=== PATIENT | female | born 1970 | race American Indian/Alaskan Native ===

== ENCOUNTER 2018-06-27 12:41 | Emergency (ER) | payer OTHER, SELFPAY ==
--- NOTE | 2018-06-27 12:53 | Emergency Department Report ---
Blank Doc - Documentation Documentation: This is a 47-year-old female that presents with right pelvic pain. Stated has history of ovarian cysts and fibroids. This initial assessment/diagnostic orders/clinical plan/treatment(s) is/are subject to change based on patient's health status, clinical progression and re-assessment by fellow clinical providers in the ED. Further treatment and workup at subsequent clinical providers discretion. Patient/guardians urged not to elope from the ED as their condition may be serious if not clinically assessed and managed. Initial orders include: 1- Patient sent to [facility] for further evaluation and treatment 2- labs 3- UA
[2018-06-27 13:25] LABS: Hematocrit 24.4 % (30.3-42.9); Hemoglobin 7.4 gm/dl (10.1-14.3); Mean Corpuscular HGB Conc 30 % (30-34); Mean Corpuscular Volume 58 fl (79-97); Red Blood Count 4.18 M/mm3 (3.65-5.03)
[2018-06-27 13:26] LABS: Platelet Count 321 K/mm3 (140-440); Red Cell Distribution Width 26.7 % (13.2-15.2)
[2018-06-27 13:59] LABS: Basophils % (Manual) 0 % (0.0-1.8); Total Cells Counted 100
[2018-06-27 14:00] LABS: Anisocytosis 3+; Hypochromasia 2+; Platelet Estimate Consistent w Auto; Poikilocytosis 1+
[2018-06-27 14:01] LABS: Ovalocytes Few; Tear Drop Cells Few
[2018-06-27 14:10] LABS: Alanine Aminotransferase 15 units/L (7-56); Albumin 3.7 g/dL (3.9-5); BUN/Creatinine Ratio 14; Blood Urea Nitrogen 10 mg/dL (7-17); Calcium 8.7 mg/dL (8.4-10.2); Hemolysis Index 0
[2018-06-27 14:12] LABS: Bilirubin,Direct < 0.2 mg/dL (0-0.2)
[2018-06-27 14:18] LABS: Bacteria,Urine 1+ /HPF (Negative); Bilirubin,Urine NEG (Negative); Blood,Urine NEG (Negative); Color,Urine Yellow (Yellow); Hyaline Casts,Urine 1 /LPF; Mucus,Urine FEW /HPF; Protein,Urine <15 mg/dL mg/dL (Negative); Urobilinogen,Urine < 2.0 mg/dL (<2.0)
--- NOTE | 2018-06-27 14:39 | Emergency Department Report ---
ED Abdominal Pain HPI - General Chief Complaint: Abdominal Pain Stated Complaint: ABD PAIN Time Seen by Provider: 06/27/18 12:52 Source: patient Mode of arrival: Ambulatory Limitations: No Limitations - History of Present Illness Initial Comments: Pt is a 47 yo female who presents to the ED with c/o RLQ abd pain that began yesterday. She states she had this similar pain in Feb 2018 and was diagnosed with fibroids. She states about 20 years before this she was diagnosed with ovarian cyst. She has associated nausea and dry heaving. She denies any diarrhea or fever. She states she has been having normal BMs. The patient states she has been taking naproxen for the pain without much relief. The patient states her PROGRAM ADMINISTRATOR recommended hysterectomy due to fibroids/cysts but she did not want procedure at that time. The patient states she has heavy menstrual cycles. She has a hx of gastric bypass. She states her LMP was last week and it lasted the entire week. Severity scale (0 -10): 8 - Related Data Previous Rx's Medication Instructions Recorded Last Taken Type Sennosides Tab [Senokot] 8.6 mg PO Q12H #30 tablet 02/25/18 Unknown Rx amLODIPine [Norvasc] 10 mg PO QDAY #30 tablet 02/25/18 Unknown Rx Acetaminophen/Codeine [Tylenol 1 tab PO Q6H PRN #14 tab 06/27/18 Unknown Rx /Codeine # 3 tab] Dicyclomine [Bentyl] 10 mg PO DAILY PRN #14 capsule 06/27/18 Unknown Rx Docusate Sodium [Colace] 100 mg PO BID #20 capsule 06/27/18 Unknown Rx Ibuprofen 600 mg PO Q6HR PRN #20 tablet 06/27/18 Unknown Rx Ondansetron [Zofran Odt] 4 mg PO Q8HR PRN #14 tab.rapdis 06/27/18 Unknown Rx Polyethylene Glycol 3350 [Miralax] 119 gm PO DAILY #7 powder 06/27/18 Unknown Rx metFORMIN [Glucophage] 500 mg PO BID 30 Days #60 tablet 06/27/18 Unknown Rx Allergies Allergy/AdvReac Type Severity Reaction Status Date / Time No Known Allergies Allergy Unverified 02/23/18 13:48 ED Review of Systems ROS: Stated complaint: ABD PAIN Other details as noted in HPI Comment: All other systems reviewed and negative ED Past Medical Hx - Past Medical History Previous Medical History?: Yes Hx Congestive Heart Failure: No Hx Diabetes: No Hx Asthma: No Hx COPD: No Additional medical history: Ovarian cyst, fibroids, gallstones - Surgical History Past Surgical History?: Yes Additional Surgical History: gastric bypass - Social History Smoking Status: Current Every Day Smoker Substance Use Type: None - Medications Home Medications: Home Medications Medication Instructions Recorded Confirmed Last Taken Type Sennosides Tab [Senokot] 8.6 mg PO Q12H #30 tablet 02/25/18 Unknown Rx amLODIPine [Norvasc] 10 mg PO QDAY #30 tablet 02/25/18 Unknown Rx Acetaminophen/Codeine [Tylenol 1 tab PO Q6H PRN #14 tab 06/27/18 Unknown Rx /Codeine # 3 tab] Dicyclomine [Bentyl] 10 mg PO DAILY PRN #14 capsule 06/27/18 Unknown Rx Docusate Sodium [Colace] 100 mg PO BID #20 capsule 06/27/18 Unknown Rx Ibuprofen 600 mg PO Q6HR PRN #20 tablet 06/27/18 Unknown Rx Ondansetron [Zofran Odt] 4 mg PO Q8HR PRN #14 tab.rapdis 06/27/18 Unknown Rx Polyethylene Glycol 3350 [Miralax] 119 gm PO DAILY #7 powder 06/27/18 Unknown Rx metFORMIN [Glucophage] 500 mg PO BID 30 Days #60 tablet 06/27/18 Unknown Rx ED Physical Exam - General Limitations: No Limitations General appearance: alert, in no apparent distress, other - Head Head exam: Present: atraumatic, normocephalic - Eye Eye exam: Present: normal appearance - ENT ENT exam: Present: mucous membranes moist - Respiratory Respiratory exam: Present: normal lung sounds bilaterally. Absent: respiratory distress, wheezes, rales, rhonchi, stridor, chest wall tenderness, accessory muscle use, decreased breath sounds, prolonged expiratory - Cardiovascular Cardiovascular Exam: Present: regular rate, normal rhythm, normal heart sounds. Absent: systolic murmur, diastolic murmur, rubs, gallop - GI/Abdominal GI/Abdominal exam: Present: soft, tenderness (RLQ and tenderness in the right lower quadrant when palpating the LLQ), guarding (voluntary ), normal bowel sounds. Absent: distended, rebound, rigid - Back Exam Back exam: Absent: CVA tenderness (R), CVA tenderness (L) - Neurological Exam Neurological exam: Present: alert, oriented X3 - Psychiatric Psychiatric exam: Present: normal affect, normal mood - Skin Skin exam: Present: warm, dry, intact ED Course Vital Signs 06/27/18 06/27/18 06/27/18 12:52 15:08 15:18 Temperature 99.1 F 98.5 F Pulse Rate 89 75 Respiratory 16 18 18 Rate Blood Pressure 177/57 Blood Pressure 172/76 [Left] O2 Sat by Pulse 100 100 Oximetry ED Medical Decision Making - Lab Data Result diagrams: 06/27/18 12:58 06/27/18 12:58 Lab Results 06/27/18 06/27/18 06/27/18 Range/Units 12:50 12:58 12:58 WBC 9.5 (4.5-11.0) K/mm3 RBC 4.18 (3.65-5.03) M/mm3 Hgb 7.4 L (10.1-14.3) gm/dl Hct 24.4 L (30.3-42.9) % MCV 58 L (79-97) fl MCH 18 L (28-32) pg MCHC 30 (30-34) % RDW 26.7 H (13.2-15.2) % Plt Count 321 (140-440) K/mm3 Add Manual Diff Complete Total Counted 100 Seg Neuts % (Manual) 77.0 H (40.0-70.0) % Band Neutrophils % 0 % Lymphocytes % (Manual) 20.0 (13.4-35.0) % Reactive Lymphs % (Man) 0 % Monocytes % (Manual) 2.0 (0.0-7.3) % Eosinophils % (Manual) 1.0 (0.0-4.3) % Basophils % (Manual) 0 (0.0-1.8) % Metamyelocytes % 0 % Myelocytes % 0 % Promyelocytes % 0 % Blast Cells % 0 % Nucleated RBC % Not Reportable Seg Neutrophils # Man 7.3 (1.8-7.7) K/mm3 Band Neutrophils # 0.0 K/mm3 Lymphocytes # (Manual) 1.9 (1.2-5.4) K/mm3 Abs React Lymphs (Man) 0.0 K/mm3 Monocytes # (Manual) 0.2 (0.0-0.8) K/mm3 Eosinophils # (Manual) 0.1 (0.0-0.4) K/mm3 Basophils # (Manual) 0.0 (0.0-0.1) K/mm3 Metamyelocytes # 0.0 K/mm3 Myelocytes # 0.0 K/mm3 Promyelocytes # 0.0 K/mm3 Blast Cells # 0.0 K/mm3 WBC Morphology Not Reportable Hypersegmented Neuts Not Reportable Hyposegmented Neuts Not Reportable Hypogranular Neuts Not Reportable Smudge Cells Not Reportable Toxic Granulation Not Reportable Toxic Vacuolation Not Reportable Dohle Bodies Not Reportable Pelger-Huet Anomaly Not Reportable Pippa Rods Not Reportable Platelet Estimate Consistent w auto Clumped Platelets Not Reportable Plt Clumps, EDTA Not Reportable Large Platelets Not Reportable Giant Platelets Not Reportable Platelet Satelliting Not Reportable Plt Morphology Comment Not Reportable RBC Morphology Not Reportable Dimorphic RBCs Not Reportable Polychromasia Not Reportable Hypochromasia 2+ Poikilocytosis 1+ Anisocytosis 3+ Microcytosis 2+ Macrocytosis Not Reportable Spherocytes Not Reportable Pappenheimer Bodies Not Reportable Sickle Cells Not Reportable Target Cells Not Reportable Tear Drop Cells Few Ovalocytes Few Helmet Cells Not Reportable [place] Bodies Not Reportable [place] Rings Not Reportable Clay Cells Not Reportable Bite Cells Not Reportable Crenated Cell Not Reportable Elliptocytes Few Acanthocytes (Spur) Not Reportable Rouleaux Not Reportable Hemoglobin C Crystals Not Reportable Schistocytes Not Reportable Malaria parasites Not Reportable Yash Bodies Not Reportable Hem Pathologist Commnt No Sodium 138 (137-145) mmol/L Potassium 4.1 (3.6-5.0) mmol/L Chloride 103.1 (98-107) mmol/L Carbon Dioxide 23 (22-30) mmol/L Anion Gap 16 mmol/L BUN 10 (7-17) mg/dL Creatinine 0.7 (0.7-1.2) mg/dL Estimated GFR > 60 ml/min BUN/Creatinine Ratio 14 % Glucose 246 H (65-100) mg/dL Calcium 8.7 (8.4-10.2) mg/dL Total Bilirubin 0.30 (0.1-1.2) mg/dL Direct Bilirubin < 0.2 (0-0.2) mg/dL Indirect Bilirubin 0.1 mg/dL AST 21 (5-40) units/L ALT 15 (7-56) units/L Alkaline Phosphatase 78 (35-129) units/L Total Protein 7.3 (6.3-8.2) g/dL Albumin 3.7 L (3.9-5) g/dL Albumin/Globulin Ratio 1.0 % Vitamin B12 475.3 (211-911) pg/mL HCG, Qual (Negative) Urine Color (Yellow) Urine Turbidity (Clear) Urine pH (5.0-7.0) Ur Specific Lohn (1.003-1.030) Urine Protein (Negative) mg/dL Urine Glucose (UA) (Negative) mg/dL Urine Ketones (Negative) mg/dL Urine Blood (Negative) Urine Nitrite (Negative) Urine Bilirubin (Negative) Urine Urobilinogen (<2.0) mg/dL Ur Leukocyte Esterase (Negative) Urine WBC (Auto) (0.0-6.0) /HPF Urine RBC (Auto) (0.0-6.0) /HPF U Epithel Cells (Auto) (0-13.0) /HPF Urine Bacteria (Auto) (Negative) /HPF Hyaline Casts /LPF Urine Mucus /HPF Blood Type Antibody Screen 06/27/18 06/27/18 06/27/18 Range/Units 12:58 14:05 Unknown WBC (4.5-11.0) K/mm3 RBC (3.65-5.03) M/mm3 Hgb (10.1-14.3) gm/dl Hct (30.3-42.9) % MCV (79-97) fl MCH (28-32) pg MCHC (30-34) % RDW (13.2-15.2) % Plt Count (140-440) K/mm3 Add Manual Diff Total Counted Seg Neuts % (Manual) (40.0-70.0) % Band Neutrophils % % Lymphocytes % (Manual) (13.4-35.0) % Reactive Lymphs % (Man) % Monocytes % (Manual) (0.0-7.3) % Eosinophils % (Manual) (0.0-4.3) % Basophils % (Manual) (0.0-1.8) % Metamyelocytes % % Myelocytes % % Promyelocytes % % Blast Cells % % Nucleated RBC % Seg Neutrophils # Man (1.8-7.7) K/mm3 Band Neutrophils # K/mm3 Lymphocytes # (Manual) (1.2-5.4) K/mm3 Abs React Lymphs (Man) K/mm3 Monocytes # (Manual) (0.0-0.8) K/mm3 Eosinophils # (Manual) (0.0-0.4) K/mm3 Basophils # (Manual) (0.0-0.1) K/mm3 Metamyelocytes # K/mm3 Myelocytes # K/mm3 Promyelocytes # K/mm3 Blast Cells # K/mm3 WBC Morphology Hypersegmented Neuts Hyposegmented Neuts Hypogranular Neuts Smudge Cells Toxic Granulation Toxic Vacuolation Dohle Bodies Pelger-Huet Anomaly Pippa Rods Platelet Estimate Clumped Platelets Plt Clumps, EDTA Large Platelets Giant Platelets Platelet Satelliting Plt Morphology Comment RBC Morphology Dimorphic RBCs Polychromasia Hypochromasia Poikilocytosis Anisocytosis Microcytosis Macrocytosis Spherocytes Pappenheimer Bodies Sickle Cells Target Cells Tear Drop Cells Ovalocytes Helmet Cells Kowalski-[place] Bodies [place]re[place] Rings Antelmo Cells Bite Cells Crenated Cell Elliptocytes Acanthocytes (Spur) Rouleaux Hemoglobin C Crystals Schistocytes Malaria parasites Yash Bodies Hem Pathologist Commnt Sodium (137-145) mmol/L Potassium (3.6-5.0) mmol/L Chloride (98-107) mmol/L Carbon Dioxide (22-30) mmol/L Anion Gap mmol/L BUN (7-17) mg/dL Creatinine (0.7-1.2) mg/dL Estimated GFR ml/min BUN/Creatinine Ratio % Glucose (65-100) mg/dL Calcium (8.4-10.2) mg/dL Total Bilirubin (0.1-1.2) mg/dL Direct Bilirubin (0-0.2) mg/dL Indirect Bilirubin mg/dL AST (5-40) units/L ALT (7-56) units/L Alkaline Phosphatase (35-129) units/L Total Protein (6.3-8.2) g/dL Albumin (3.9-5) g/dL Albumin/Globulin Ratio % Vitamin B12 (211-911) pg/mL HCG, Qual Negative (Negative) Urine Color Yellow (Yellow) Urine Turbidity Clear (Clear) Urine pH 5.0 (5.0-7.0) Ur Specific Lohn 1.009 (1.003-1.030) Urine Protein <15 mg/dl (Negative) mg/dL Urine Glucose (UA) Neg (Negative) mg/dL Urine Ketones Neg (Negative) mg/dL Urine Blood Neg (Negative) Urine Nitrite Neg (Negative) Urine Bilirubin Neg (Negative) Urine Urobilinogen < 2.0 (<2.0) mg/dL Ur Leukocyte Esterase Neg (Negative) Urine WBC (Auto) 3.0 (0.0-6.0) /HPF Urine RBC (Auto) 2.0 (0.0-6.0) /HPF U Epithel Cells (Auto) 5.0 (0-13.0) /HPF Urine Bacteria (Auto) 1+ (Negative) /HPF Hyaline Casts 1 /LPF Urine Mucus Few /HPF Blood Type O POSITIVE Antibody Screen Negative Vital Signs 06/27/18 06/27/18 06/27/18 12:52 15:08 15:18 Temperature 99.1 F 98.5 F Pulse Rate 89 75 Respiratory 16 18 18 Rate Blood Pressure 177/57 Blood Pressure 172/76 [Left] O2 Sat by Pulse 100 100 Oximetry - Radiology Data Radiology results: report reviewed PROCEDURE: CT ABDOMEN PELVIS W CON TECHNIQUE: CT abdomen and pelvis with intravenous contrast HISTORY: RLQ pain x 1 day, hx of ovarian cyst COMPARISONS: Comparison is dated February 23, 2018 FINDINGS: No focal abnormality identified in the visualized lung bases. No focal abnormalities seen within the liver parenchyma. Multiple lucent and dense foci within the gallbladder consistent with cholelithiasis. No evidence for ductal dilatation within the liver or common duct. Spleen is normal in size and attenuation Adrenal glands are unremarkable. Kidneys demonstrate symmetric contrast enhancement Along the superior margin of the pancreas adjacent to the stomach there is a thin-walled cystic focus measuring 4.5 x 3.9 x 3.5 cm. This is unchanged from prior exam. There is dilatation of the duct distal to the cyst 0.4 cm. No evidence for dilatation of the pancreatic duct at the body or head of the pancreas. No acute peripancreatic inflammatory changes are observed. There is evidence for prior gastric surgery the colon is moderately distended there is large amount of fecal material throughout the colon. Within the left lower quadrant there is a distended bowel loop containing air and fecal appearing material with evidence for prior surgery and suture material present. Appears to be a focal small bowel segment at site of prior resection. There is some sacralization of small bowel contents throughout most suggestive of stasis. Within the left upper quadrant there are more significantly distended small nena l loops measuring up to 4.2 cm There is are multiple cystic foci present within the pelvis this appears similar to the prior exam these measure up to 5.4 cm in transverse diameter Abdominal aorta is normal in caliber No free air or free fluid identified. Urinary bladder is unremarkable. IMPRESSION: Findings are suggestive of prior gastric and small bowel surgery. Please correlate with surgical history Distended proximal to mid small bowel loops with equalization of material within additional small bowel loops and possible transition point. Findings concerning for obstruction or possible pseudoobstruction due to ileus. Cyst seen which appears to be arising from the tail of the pancreas with ductal dilatation of the distal pancreas. Differential considerations could include a serous cystadenoma or other pancreatic cyst versus pseudocyst. Continued follow-up recommended additional 6 month initial follow-up suggested versus surgical consultation.. Increased amount of fecal material throughout the colon may reflect constipation Multiple cystic foci in the lower pelvis similar to the prior exam likely ovarian in origin and persistent consider MEASUREMENT SUPERINTENDENT evaluation This document is electronically signed by Sky Montanez MD. Findings were discussed with CANDI Avila at 5:18 PM EST on June 27, 2018, June 27 2018 05:21:43 PM ET Transcribed By: ORQUIDEA Dictated By: ARLEEN MONTANEZ MD Electronically Authenticated By: ARLEEN MONTANEZ MD Signed Date/Time: 06/27/18 1723 - Medical Decision Making Pt is a 47 yo female who presents to the ED with c/o RLQ abd pain that began yesterday. She states she had this similar pain in Feb 2018 and was diagnosed with fibroids. She states about 20 years before this she was diagnosed with ovarian cyst. She has associated nausea and dry heaving. She denies any diarrhea or fever. She states she has been having normal BMs. The patient states she has been taking naproxen for the pain without much relief. The patient states her PROGRAM ADMINISTRATOR recommended hysterectomy due to fibroids/cysts but she did not want procedure at that time. The patient states she has heavy menstrual cycles. She has a hx of gastric bypass. She states her LMP was last week and it lasted the entire week. Labs reveal stable anemia with hgb at 7.4. Pt has a hx of anemia due to heavy cycles advised pt to please take her iron. Labs also reveal elevated blood glucose of 246, most likely representing new diagnosis of d iabetes, pt started on metformin 500 mg BID and advised to please follow up with a primary care doctor in the next 2-3 days, discussed side effects with patient. Pt blood pressure is elevated, advised pt to please see PCP for further evaluation and management. Pt CT abd pelvis shows Distended proximal to mid small bowel loops with equalization of material within additional small bowel loops and possible transition point. Findings concerning for obstruction or possible pseudoobstruction due to ileus. Cyst seen which appears to be arising from the tail of the pancreas with ductal dilatation of the distal pancreas. Differential considerations could include a serous cystadenoma or other pancreatic cyst versus pseudocyst. Continued follow-up recommended additional 6 month initial follow-up suggested versus surgical consultation.. Increased amount of fecal material throughout the colon may reflect constipation. Multiple cystic foci in the lower pelvis similar to the prior exam likely ovarian in origin and persistent consider MEASUREMENT SUPERINTENDENT evaluation. Pt is tolerating PO intake while in the ED without difficulty. pt has eaten chips and drank water with no difficulty. Pt has normal BMs and has normal bowel sounds. Unlikely to be an obstruction, most likely representing an ileus. Pt given general surgery referral to follow up in the next 2-3 days for pancreatic cyst, gallstones, and prior gastric surgery. pt also given GI doctor to follow up with in the next 2-3 days. Pt sees PROGRAM ADMINISTRATOR at [facility] advised to follow back up in the next 2-3 days to discuss recurring ovarian cysts. Discussed in detail with patient to return to the emergency department for emesis, abd pain, unable to have BMs or pass gas, or any new or worsening symptoms. Pt verbalized understanding. Case discussed with Dr. Mcdonald, who agrees with tx and plan for follow up. - Differential Diagnosis Cyst, Fibroids, Appendicitis, SBO Critical care attestation.: If time is entered above; I have spent that time in minutes in the direct care of this critically ill patient, excluding procedure time. ED Disposition Clinical Impression: Pancreatic cyst, Ileus, unspecified, Elevated blood pressure reading Abdominal pain Qualifiers: Abdominal location: right lower quadrant Qualified Code(s): R10.31 - Right lower quadrant pain Cholelithiasis Qualifiers: Cholelithiasis location: gallbladder Cholecystitis presence: without cholecystitis Biliary obstruction: without biliary obstruction Qualified Code(s): K80.20 - Calculus of gallbladder without cholecystitis without obstruction Ovarian cyst Qualifiers: Laterality: bilateral Qualified Code(s): N83.201 - Unspecified ovarian cyst, right side; N83.202 - Unspecified ovarian cyst, left side Diabetes Qualifiers: Diabetes mellitus type: type 2 Diabetes mellitus intermediate project manager insulin use: without detention use Diabetes mellitus complication status: without complication Qualified Code(s): E11.9 - Type 2 diabetes mellitus without complications Anemia Qualifiers: Anemia type: iron deficiency Iron deficiency anemia type: chronic blood loss Qualified Code(s): D50.0 - Iron deficiency anemia secondary to blood loss (chronic) Disposition: DC-01 TO HOME OR SELFCARE Is pt being admited?: No Does the pt Need Aspirin: No Condition: Stable Instructions: Diabetes Mellitus Type 2 in Adults (ED), Abdominal Pain (ED) Additional Instructions: Please take all medication as prescribed. Please follow up with a primary care doctor in the next 2-3 days to discuss elevation in blood sugar and blood pressure. Please follow up with a general surgeon to discuss gallstones, pancreatic cyst, and previous gastric bypass surgery. Please follow up with a GI doctor in the next 2-3 days. Please follow up with your PROGRAM ADMINISTRATOR in the next 2-3 days for further evaluation and management of your ovarian cysts. Return to the emergency room immediately for increasing abdominal pain, vomiting, unable to have a bowel movement, unable to tolerate food or drinks or any new or worsening symptoms. Prescriptions: Dicyclomine [Bentyl] 10 mg PO DAILY PRN #14 capsule PRN Reason: Spasms Docusate Sodium [Colace] 100 mg PO BID #20 capsule metFORMIN [Glucophage] 500 mg PO BID 30 Days #60 tablet Ibuprofen 600 mg PO Q6HR PRN #20 tablet PRN Reason: Pain, Moderate (4-6) Polyethylene Glycol 3350 [Miralax] 119 gm PO DAILY #7 powder Acetaminophen/Codeine [Tylenol /Codeine # 3 tab] 1 tab PO Q6H PRN #14 tab PRN Reason: Pain , Severe (7-10) Ondansetron [Zofran Odt] 4 mg PO Q8HR PRN #14 tab.rapdis PRN Reason: Nausea Referrals: [facility] MD [Primary Care Provider] - 2-3 Days ALANA VILLALBA MD [Staff Physician] - 2-3 Days [facility] [Provider Group] - 2-3 Days [facility] [Provider Group] - 2-3 Days Time of Disposition: 18:05 Print Language: ERITREAN
[2018-06-27] MEDS ORDERED: ZOFRAN IV ONE (14:40)
[2018-06-27] MEDS ORDERED: TORADOL IV ONE (14:40)
[2018-06-27 15:20] VITALS: BP 172/76
--- NOTE | 2018-06-27 17:23 | Cat Scan Report ---
PROCEDURE: CT ABDOMEN PELVIS W CON TECHNIQUE: CT abdomen and pelvis with intravenous contrast HISTORY: RLQ pain x 1 day, hx of ovarian cyst COMPARISONS: Comparison is dated February 23, 2018 FINDINGS: No focal abnormality identified in the visualized lung bases. No focal abnormalities seen within the liver parenchyma. Multiple lucent and dense foci within the ga llbladder consistent with cholelithiasis. No evidence for ductal dilatation within the liver or commo n duct. Spleen is normal in size and attenuation Adrenal glands are unremarkable. Kidneys demonstrate symmetric contrast enhancement Along the superior margin of the pancreas adjacent to the stomach there is a thin-walled cystic focus measuring 4.5 x 3.9 x 3.5 cm. This is unchanged from prior exam. There is dilatation of the duct dis lindsay to the cyst 0.4 cm. No evidence for dilatation of the pancreatic duct at the body or head of the pancreas. No acute peripancreatic inflammatory changes are observed. There is evidence for prior gastric surgery the colon is moderately distended there is large amount o f fecal material throughout the colon. Within the left lower quadrant there is a distended bowel loop containing air and fecal appearing mat erial with evidence for prior surgery and suture material present. Appears to be a focal small bowel segment at site of prior resection. There is some sacralization of small bowel contents throughout mo st suggestive of stasis. Within the left upper quadrant there are more significantly distended small bowel loops measuring up to 4.2 cm There is are multiple cystic foci present within the pelvis this appears similar to the prior exam th lisa measure up to 5.4 cm in transverse diameter Abdominal aorta is normal in caliber No free air or free fluid identified. Urinary bladder is unremarkable. IMPRESSION: Findings are suggestive of prior gastric and small bowel surgery. Please correlate with surgical hist ory Distended proximal to mid small bowel loops with equalization of material within additional small bow el loops and possible transition point. Findings concerning for obstruction or possible pseudoobstruc tion due to ileus. Cyst seen which appears to be arising from the tail of the pancreas with ductal dilatation of the dis lindsay pancreas. Differential considerations could include a serous cystadenoma or other pancreatic cys t versus pseudocyst. Continued follow-up recommended additional 6 month initial follow-up suggested v ersus surgical consultation.. Increased amount of fecal material throughout the colon may reflect constipation Multiple cystic foci in the lower pelvis similar to the prior exam likely ovarian in origin and persi stent consider AGITATOR OPERATOR evaluation This document is electronically signed by Sky Blanchard MD. Findings were discussed with CANDI Avila at 5:18 PM EST on June 27, 2018, June 27 2018 05:21:43 PM ET
== END 2018-06-27 18:32 | disposition home or self-care (01) ==
LOC: ED 12:41
DX: K86.2 Cyst of pancreas (principal); K80.20 Calculus of gallbladder without cholecystitis without obstruction; N83.201 Unspecified ovarian cyst, right side; N83.202 Unspecified ovarian cyst, left side; E11.9 Type 2 diabetes mellitus without complications; D50.0 Iron deficiency anemia secondary to blood loss (chronic); F17.200 Nicotine dependence, unspecified, uncomplicated; Z79.4 Long term (current) use of insulin; Z98.84 Bariatric surgery status
CPT/HCPCS: 36415; 74177; 80048; 80076; 81001; 82607; 82747; 84703; 85007; 85025; 86850; 86900; 86901; 96374; 96375; 99284; J1885; J2405; Q9967

== ENCOUNTER 2019-07-20 13:27 | Inpatient (IN) | payer SELFPAY ==
[2019-07-20 13:57] LABS: Eosinophils # (Auto) 0.1 K/mm3 (0.0-0.4); Eosinophils % (Auto) 0.8 % (0.0-4.3); Hematocrit 39.5 % (30.3-42.9); Hemoglobin 13.4 gm/dl (10.1-14.3); Lymphocytes # (Auto) 1.9 K/mm3 (1.2-5.4); Lymphocytes % (Auto) 20.8 % (13.4-35.0); Mean Corpuscular HGB Conc 34 % (30-34); Mean Corpuscular Volume 93 fl (79-97); Monocytes # (Auto) 0.3 K/mm3 (0.0-0.8); Monocytes % (Auto) 3.3 % (0.0-7.3); Platelet Count 206 K/mm3 (140-440); Red Blood Count 4.27 M/mm3 (3.65-5.03); Red Cell Distribution Width 14.1 % (13.2-15.2)
[2019-07-20 14:00] LABS: INR 0.9 (0.87-1.13)
[2019-07-20 14:01] LABS: Partial Thromboplastin Time 27.1 Sec. (24.2-36.6)
[2019-07-20 14:02] LABS: BUN/Creatinine Ratio 17; Blood Urea Nitrogen 12 mg/dL (7-17); Hemolysis Index 7
--- NOTE | 2019-07-20 14:07 | Cat Scan Report ---
CT HEAD WITHOUT CONTRAST INDICATION / CLINICAL INFORMATION: Code stroke patient. RT side weakness trouble speaking, last wellness this morning. TECHNIQUE: All CT scans at this location are performed using CT dose reduction for ALARA by means of automated e xposure control. COMPARISON: None available. FINDINGS: HEMORRHAGE: No evidence of intracranial hemorrhage or extra-axial fluid collection. EXTRA-AXIAL SPACES: Cortical sulci, sylvian fissures and basilar cisterns have an unremarkable appear ance. VENTRICULAR SYSTEM: The ventricular system is of normal size and configuration. CEREBRAL PARENCHYMA: Findings indicate remote small deep infarction involving head of caudate nucleus on the left. No additional areas of abnormal brain parenchymal attenuation are identified. There is no indication of recent infarction. MIDLINE SHIFT OR HERNIATION: There is no mass effect. CEREBELLUM / BRAINSTEM: Brainstem and cerebellum have an unremarkable appearance. INTRACRANIAL VESSELS:No abnormalities are identified on this noncontrast head CT. ORBITS: visualized portions of the orbits have an unremarkable appearance. SOFT TISSUES of HEAD: No significant abnormality. CALVARIUM: Evaluation of bone windows reveals no abnormalities. PARANASAL SINUSES / MASTOID AIR CELLS: There is an air-fluid level in the left maxillary sinus. Paran ruel sinuses otherwise appear clear. Normal and symmetrical pneumatization of the mastoid air cells a nd middle ear cavities is observed. ADDITIONAL FINDINGS: None. IMPRESSION: 1. 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 2. No acute intracranial abnormality. Code stroke: I called a report to Dr. Shankar of the [facility] emergency departm ent at about 1301 Central standard time. Signer Name: Haseeb Underwood MD Signed: 07/20/2019 2:02 PM Workstation Name: [id number]
--- NOTE | 2019-07-20 14:12 | Emergency Department Report ---
ED Neuro Deficit HPI - General Chief Complaint: Neuro Symptoms/Deficit Stated Complaint: POSS STROKE Time Seen by Provider: 07/20/19 13:51 Source: patient Mode of arrival: Ambulatory Limitations: No Limitations - History of Present Illness Initial Comments: [employer] Date of Service: 07/20/2019 13:40:06 Impression: Left Hemispheric Infarct Comments/Sign-Out: Exam shows expressive aphasia, mild right leg weakness and right nasolabial fold flattening. Subtle hypodensity on CT head may be her current stroke vs old infarct. Recommend CTA to rule out LVO. Metrics: Last Known Well: Unknown [employer] Notification Time: 07/20/2019 13:39:41 Arrival Time: 07/20/2019 13:27:00 Stamp Time: 07/20/2019 13:40:06 Time First Login Attempt: 07/20/2019 13:41:50 Video Start Time: 07/20/2019 13:41:50 Symptoms: speech issues NIHSS Start Assessment Time: 07/20/2019 13:50:58 Patient is not a candidate for tPA. Patient was not deemed candidate for tPA thrombolytics because of Last Well Known Above 4.5 Hours. Video End Time: 07/20/2019 14:04:00 CT head was reviewed and results were: Hypodensity in left [place] radiata age indeterminant Lower Likelihood of Large Vessel Occlusion but Following Stat Studies are Recommended CTA Head and Neck. ED Physician notified of diagnostic impression and management plan on 07/20/2019 14:05:30 Our recommendations are outlined below. Recommendations: Activate Stroke Protocol Admission/Order Set Stroke/Telemetry Floor Neuro Checks Bedside Swallow Eval DVT Prophylaxis IV Fluids, Normal Saline Head of Bed 30 Degrees Euglycemia and Avoid Hyperthermia (PRN Acetaminophen) Initiate Aspirin 81 MG Daily Routine Consultation with Inhouse Neurology for Follow up Care Sign Out: Discussed with Emergency Department Provider History of Present Illness: Patient is a 48 year old Female. Patient was brought by private transportation with symptoms of speech issues 48 yo F with history of htn and gastric bypass who is presenting with speech changes. Patient is having trouble with her speech starting this morning. She spoke to her mother and cousin and had no issues at that time. Then she ate and after that she started to have trouble getting her words out. Patient was not able to operate her alarm clock at 6:00. She does not feel that she was normal since the night before but can not give a time. Examination: BP(189/98), 1A: Level of Consciousness - Alert; keenly responsive + 0 1B: Ask Month and Age - Both Questions Right + 0 1C: Blink Eyes & Squeeze Hands - Performs Both Tasks + 0 2: Test Horizontal Extraocular Movements - Normal + 0 3: Test Visual Naik - No Visual Loss + 0 4: Test Facial Palsy (Use Grimace if Obtunded) - Minor paralysis (flat nasolabial fold, smile asymmetry) + 1 5A: Test Left Arm Motor Drift - No Drift for 10 Seconds + 0 5B: Test Right Arm Motor Drift - No Drift for 10 Seconds + 0 6A: Test Left Leg Motor Drift - No Drift for 5 Seconds + 0 6B: Test Right Leg Motor Drift - Drift, but doesn't hit bed + 1 7: Test Limb Ataxia (FNF/Heel-Rogel) - No Ataxia + 0 8: Test Sensation - Normal; No sensory loss + 0 9: Test Language/Aphasia - Mild-Moderate Aphasia: Some Obvious Changes, Without Significant Limitation + 1 10: Test Dysarthria - Normal + 0 11: Test Extinction/Inattention - No abnormality + 0 NIHSS Score: 3 Patient/Family was informed the Neurology Consult would happen via TeleHealth consult by way of interactive audio and video telecommunications and consented to receiving care in this manner. Due to the immediate potential for life-threatening deterioration due to underlying acute neurologic illness, I spent 35 minutes providing critical care. This time includes time for face to face visit via telemedicine, review of medical records, imaging studies and discussion of findings with providers, the patient and/or family. Dr Latisha Lubin [employer] Case [id number] - Related Data Home Medications: Previous Rx's Medication Instructions Recorded Last Taken Type Sennosides Tab [Senokot] 8.6 mg PO Q12H #30 tablet 02/25/18 Unknown Rx amLODIPine 10 mg PO QDAY #30 tablet 02/25/18 Unknown Rx Acetaminophen/Codeine [Tylenol 1 tab PO Q6H PRN #14 tab 06/27/18 Unknown Rx /Codeine # 3 tab] Dicyclomine [Bentyl] 10 mg PO DAILY PRN #14 capsule 06/27/18 Unknown Rx Docusate Sodium [Colace] 100 mg PO BID #20 capsule 06/27/18 Unknown Rx Ibuprofen 600 mg PO Q6HR PRN #20 tablet 06/27/18 Unknown Rx Ondansetron [Zofran Odt] 4 mg PO Q8HR PRN #14 tab.rapdis 06/27/18 Unknown Rx Polyethylene Glycol 3350 [Miralax] 119 gm PO DAILY #7 powder 06/27/18 Unknown Rx metFORMIN [Glucophage] 500 mg PO BID 30 Days #60 tablet 06/27/18 Unknown Rx Allergies/Adverse Reactions: Allergies Allergy/AdvReac Type Severity Reaction Status Date / Time No Known Allergies Allergy Unverified 02/23/18 13:48 ED Review of Systems ROS: Stated complaint: POSS STROKE Other details as noted in HPI ED Past Medical Hx - Past Medical History Previous Medical History?: Yes Hx Congestive Heart Failure: No Hx Diabetes: No Hx Asthma: No Hx COPD: No Additional medical history: Ovarian cyst, fibroids, gallstones - Surgical History Past Surgical History?: Yes Additional Surgical History: gastric bypass - Social History Smoking Status: Current Every Day Smoker Substance Use Type: Alcohol - Medications Home Medications: Home Medications Medication Instructions Recorded Confirmed Last Taken Type Sennosides Tab [Senokot] 8.6 mg PO Q12H #30 tablet 02/25/18 Unknown Rx amLODIPine 10 mg PO QDAY #30 tablet 02/25/18 Unknown Rx Acetaminophen/Codeine [Tylenol 1 tab PO Q6H PRN #14 tab 06/27/18 Unknown Rx /Codeine # 3 tab] Dicyclomine [Bentyl] 10 mg PO DAILY PRN #14 capsule 06/27/18 Unknown Rx Docusate Sodium [Colace] 100 mg PO BID #20 capsule 06/27/18 Unknown Rx Ibuprofen 600 mg PO Q6HR PRN #20 tablet 06/27/18 Unknown Rx Ondansetron [Zofran Odt] 4 mg PO Q8HR PRN #14 tab.rapdis 06/27/18 Unknown Rx Polyethylene Glycol 3350 [Miralax] 119 gm PO DAILY #7 powder 06/27/18 Unknown Rx metFORMIN [Glucophage] 500 mg PO BID 30 Days #60 tablet 06/27/18 Unknown Rx ED Neuro Physical Exam - General Limitations: No Limitations Suspected Stroke: Yes - NIHSS Assessment Interval: Baseline 1a. Level of Consciousness: alert/keenly responsive 1b. LOC Questions: answers both correctly 1c. LOC Commands: performs tasks correctly 2. Best Gaze: normal 3. Visual: no visual loss 4. Facial Palsy: minor paralysis 5b. Motor Arm Right: no drift 5a. Motor Arm Left: no drift 6a. Motor Leg Left: no drift 6b. Motor Leg Right: drift 7. Limb Ataxia: absent 8. Sensory: normal 9. Best Language: mild/moderate aphasia 10. Dysarthria: normal 11. Extinction/Inattention: no abnormality Total Score: 3 Stroke Severity: Minor Stroke ED Course Vital Signs 07/20/19 13:29 Temperature 98 F Pulse Rate 71 Respiratory 20 Rate Blood Pressure 189/98 O2 Sat by Pulse 99 Oximetry - Lab Data Result diagrams: 07/20/19 13:43 07/20/19 13:43 Lab Results 07/20/19 07/20/19 07/20/19 Range/Units 13:43 13:43 13:43 WBC 9.0 (4.5-11.0) K/mm3 RBC 4.27 (3.65-5.03) M/mm3 Hgb 13.4 (10.1-14.3) gm/dl Hct 39.5 (30.3-42.9) % MCV 93 (79-97) fl MCH 31 (28-32) pg MCHC 34 (30-34) % RDW 14.1 (13.2-15.2) % Plt Count 206 (140-440) K/mm3 Lymph % (Auto) 20.8 (13.4-35.0) % [place] % (Auto) 3.3 (0.0-7.3) % Eos % (Auto) 0.8 (0.0-4.3) % Baso % (Auto) Club Former Lymph # 1.9 (1.2-5.4) K/mm3 [place] # 0.3 (0.0-0.8) K/mm3 Eos # 0.1 (0.0-0.4) K/mm3 Baso # 0.0 (0.0-0.1) K/mm3 Seg Neutrophils % 74.7 H (40.0-70.0) % Seg Neutrophils # 6.7 (1.8-7.7) K/mm3 PT 12.0 L (12.2-14.9) Sec. INR 0.90 (0.87-1.13) APTT 27.1 (24.2-36.6) Sec. Thrombin Time (15.1-19.6) Sec. Sodium 136 L (137-145) mmol/L Potassium 3.9 (3.6-5.0) mmol/L Chloride 102.1 (98-107) mmol/L Carbon Dioxide 22 (22-30) mmol/L Anion Gap 16 mmol/L BUN 12 (7-17) mg/dL Creatinine 0.7 (0.7-1.2) mg/dL Estimated GFR > 60 ml/min BUN/Creatinine Ratio 17 % Glucose 125 H (65-100) mg/dL Calcium 9.0 (8.4-10.2) mg/dL Troponin T < 0.010 (0.00-0.029) ng/mL 07/20/19 Range/Units 13:43 WBC (4.5-11.0) K/mm3 RBC (3.65-5.03) M/mm3 Hgb (10.1-14.3) gm/dl Hct (30.3-42.9) % MCV (79-97) fl MCH (28-32) pg MCHC (30-34) % RDW (13.2-15.2) % Plt Count (140-440) K/mm3 Lymph % (Auto) (13.4-35.0) % [place] % (Auto) (0.0-7.3) % Eos % (Auto) (0.0-4.3) % Baso % (Auto) Lymph # (1.2-5.4) K/mm3 [place] # (0.0-0.8) K/mm3 Eos # (0.0-0.4) K/mm3 Baso # (0.0-0.1) K/mm3 Seg Neutrophils % (40.0-70.0) % Seg Neutrophils # (1.8-7.7) K/mm3 PT (12.2-14.9) Sec. INR (0.87-1.13) APTT (24.2-36.6) Sec. Thrombin Time 14.9 L (15.1-19.6) Sec. Sodium (137-145) mmol/L Potassium (3.6-5.0) mmol/L Chloride (98-107) mmol/L Carbon Dioxide (22-30) mmol/L Anion Gap mmol/L BUN (7-17) mg/dL Creatinine (0.7-1.2) mg/dL Estimated GFR ml/min BUN/Creatinine Ratio % Glucose (65-100) mg/dL Calcium (8.4-10.2) mg/dL Troponin T (0.00-0.029) ng/mL Critical care attestation.: If time is entered above; I have spent that time in minutes in the direct care of this critically ill patient, excluding procedure time. ED Disposition Clinical Impression: Stroke Disposition: DC-09 OP ADMIT IP TO THIS HOSP Is pt being admited?: Yes Condition: Stable
--- NOTE | 2019-07-20 14:21 | Emergency Department Report ---
ED Neuro Deficit HPI - General Chief Complaint: Neuro Symptoms/Deficit Stated Complaint: POSS STROKE Time Seen by Provider: 07/20/19 13:51 Source: patient Mode of arrival: Ambulatory Limitations: No Limitations - History of Present Illness Initial Comments: This is a 48-year-old female who admits that she has been under excessive anxiety lately. 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 She states that she has had anxiety disorder and does take medication for it. She has a history of hypertension and takes only clonidine for that. She denies a history of diabetes or prior stroke. The patient denied any prior CT of her head or work-up despite at least some of her symptoms being of 2 months duration as follows. Patient gives a somewhat variable history of her last well time. Initially she told me she woke up at 11:00 with symptoms. Later she told me it was 10 AM. Apparently she told the tele-neurologist that she was having given symptoms last night. She told me in addition that she has had pain and weakness of her right arm and leg for 2 months. Her symptoms of concern were also somewhat variable. Apparently she has been having some difficulty with speech and follow-up at least since last night but worse since she woke up. She mentioned double vision to me but I think not to the tele-neurologist. She was very emotionally labile and tearful throughout the examination. She also stated that she had weakness in her right arm and her right leg as well as the right side of her face. She did not report any sensory change. -: hour(s), days(s), month(s) (Depending on the symptom) Location: speech, right face, right arm, right leg Presenting Symptoms: Present: Weak/Paralyzed One Side, Blurred/Loss of Vision, Facial Droop/Numbness, Altered Mental Status History of same: Yes (problem with her right side for 2 months) Place: home Severity: mild, moderate Quality: weak Improves With: none Worsens With: none On Anticoagulants: No Context: other (Wake-up symptoms and chronic symptoms) Associated Symptoms: denies other symptoms - Related Data Home Medications: Previous Rx's Medication Instructions Recorded Last Taken Type Sennosides Tab [Senokot] 8.6 mg PO Q12H #30 tablet 02/25/18 Unknown Rx amLODIPine 10 mg PO QDAY #30 tablet 02/25/18 Unknown Rx Acetaminophen/Codeine [Tylenol 1 tab PO Q6H PRN #14 tab 06/27/18 Unknown Rx /Codeine # 3 tab] Dicyclomine [Bentyl] 10 mg PO DAILY PRN #14 capsule 06/27/18 Unknown Rx Docusate Sodium [Colace] 100 mg PO BID #20 capsule 06/27/18 Unknown Rx Ibuprofen 600 mg PO Q6HR PRN #20 tablet 06/27/18 Unknown Rx Ondansetron [Zofran Odt] 4 mg PO Q8HR PRN #14 tab.rapdis 06/27/18 Unknown Rx Polyethylene Glycol 3350 [Miralax] 119 gm PO DAILY #7 powder 06/27/18 Unknown Rx metFORMIN [Glucophage] 500 mg PO BID 30 Days #60 tablet 06/27/18 Unknown Rx Allergies/Adverse Reactions: Allergies Allergy/AdvReac Type Severity Reaction Status Date / Time No Known Allergies Allergy Unverified 02/23/18 13:48 ED Review of Systems ROS: Stated complaint: POSS STROKE Other details as noted in HPI Constitutional: denies: chills, fever Eyes: denies: eye pain, eye discharge, vision change ENT: denies: ear pain, throat pain Respiratory: denies: cough, shortness of breath, wheezing Cardiovascular: denies: chest pain, palpitations Endocrine: no symptoms reported Gastrointestinal: denies: abdominal pain, nausea, diarrhea Genitourinary: denies: urgency, dysuria, discharge Musculoskeletal: denies: back pain, joint swelling, arthralgia Skin: denies: rash, lesions Neurological: as per HPI, weakness. denies: headache, paresthesias Psychiatric: anxiety. denies: depression Hematological/Lymphatic: denies: easy bleeding, easy bruising ED Past Medical Hx - Past Medical History Previous Medical History?: Yes Hx Congestive Heart Failure: No Hx Diabetes: No Hx Asthma: No Hx COPD: No Additional medical history: Ovarian cyst, fibroids, gallstones - Surgical History Past Surgical History?: Yes Additional Surgical History: gastric bypass - Social History Smoking Status: Current Every Day Smoker Substance Use Type: Alcohol - Medications Home Medications: Home Medications Medication Instructions Recorded Confirmed Last Taken Type Sennosides Tab [Senokot] 8.6 mg PO Q12H #30 tablet 02/25/18 Unknown Rx amLODIPine 10 mg PO QDAY #30 tablet 02/25/18 Unknown Rx Acetaminophen/Codeine [Tylenol 1 tab PO Q6H PRN #14 tab 06/27/18 Unknown Rx /Codeine # 3 tab] Dicyclomine [Bentyl] 10 mg PO DAILY PRN #14 capsule 06/27/18 Unknown Rx Docusate Sodium [Colace] 100 mg PO BID #20 capsule 06/27/18 Unknown Rx Ibuprofen 600 mg PO Q6HR PRN #20 tablet 06/27/18 Unknown Rx Ondansetron [Zofran Odt] 4 mg PO Q8HR PRN #14 tab.rapdis 06/27/18 Unknown Rx Polyethylene Glycol 3350 [Miralax] 119 gm PO DAILY #7 powder 06/27/18 Unknown Rx metFORMIN [Glucophage] 500 mg PO BID 30 Days #60 tablet 06/27/18 Unknown Rx ED Neuro Physical Exam - General Limitations: Other (Anxious and emotionally labile) General appearance: alert, in no apparent distress Suspected Stroke: Yes - Head Head exam: Present: atraumatic, normocephalic - Eye Eye exam: Present: normal appearance. Absent: scleral icterus - ENT ENT exam: Present: mucous membranes moist - Neck Neck exam: Present: normal inspection. Absent: tenderness, meningismus - Respiratory Respiratory exam: Present: normal lung sounds bilaterally. Absent: respiratory distress - Cardiovascular Cardiovascular Exam: Present: regular rate, normal rhythm. Absent: systolic murmur, diastolic murmur, rubs, gallop - GI/Abdominal GI/Abdominal exam: Present: soft, normal bowel sounds. Absent: distended, tenderness, guarding, rebound, rigid - Extremities Exam Extremities exam: Present: normal inspection - Back Exam Back exam: Present: normal inspection - Neurological Exam Neurological exam: Present: alert, oriented X3, motor sensory deficit. Absent: CN II-XII intact - NIHSS Assessment Interval: Baseline 1a. Level of Consciousness: alert/keenly responsive 1b. LOC Questions: answers both correctly 1c. LOC Commands: performs tasks correctly 2. Best Gaze: normal 3. Visual: no visual loss 4. Facial Palsy: minor paralysis 5b. Motor Arm Right: drift (Plus or minus right arm) 5a. Motor Arm Left: no drift 6a. Motor Leg Left: no drift 6b. Motor Leg Right: no drift (States weak but no drift at 15 seconds) 7. Limb Ataxia: absent 8. Sensory: normal 9. Best Language: mild/moderate aphasia 10. Dysarthria: normal 11. Extinction/Inattention: no abnormality Total Score: 3 Stroke Severity: Minor Stroke - Psychiatric Psychiatric exam: Present: anxious, other (Tearful) - Skin Skin exam: Present: warm, dry, intact, normal color. Absent: rash ED Course Vital Signs 07/20/19 13:29 Temperature 98 F Pulse Rate 71 Respiratory 20 Rate Blood Pressure 189/98 O2 Sat by Pulse 99 Oximetry - Reevaluation(s) Reevaluation #1: Conferred with radiologist who states that the patient has a lucency in the left coordinate nucleus consistent with an old stroke. This may correlate with the patient's symptoms of right-sided weakness which she now states have been present for several weeks if not months. It is possible she has had an extension of an old stroke. It is very difficult to determine whether she actually has had a new event or not. Discussed with tele-neurologist who ordered a CTA for further clarification. The patient will be admitted to the hospital service for further care and evaluation. She is not a candidate for TPA considering that her last known well time puts her outside the window for inclusion. 07/20/19 14:24 07/20/19 15:[address] Moon who will be admitting the patient. - Lab Data Result diagrams: 07/20/19 13:43 07/20/19 13:43 Lab Results 07/20/19 07/20/19 07/20/19 Range/Units 13:43 13:43 13:43 WBC 9.0 (4.5-11.0) K/mm3 RBC 4.27 (3.65-5.03) M/mm3 Hgb 13.4 (10.1-14.3) gm/dl Hct 39.5 (30.3-42.9) % MCV 93 (79-97) fl MCH 31 (28-32) pg MCHC 34 (30-34) % RDW 14.1 (13.2-15.2) % Plt Count 206 (140-440) K/mm3 Lymph % (Auto) 20.8 (13.4-35.0) % [place] % (Auto) 3.3 (0.0-7.3) % Eos % (Auto) 0.8 (0.0-4.3) % Baso % (Auto) [employer] Lymph # 1.9 (1.2-5.4) K/mm3 [place] # 0.3 (0.0-0.8) K/mm3 Eos # 0.1 (0.0-0.4) K/mm3 Baso # 0.0 (0.0-0.1) K/mm3 Seg Neutrophils % 74.7 H (40.0-70.0) % Seg Neutrophils # 6.7 (1.8-7.7) K/mm3 PT 12.0 L (12.2-14.9) Sec. INR 0.90 (0.87-1.13) APTT 27.1 (24.2-36.6) Sec. Thrombin Time (15.1-19.6) Sec. Sodium 136 L (137-145) mmol/L Potassium 3.9 (3.6-5.0) mmol/L Chloride 102.1 (98-107) mmol/L Carbon Dioxide 22 (22-30) mmol/L Anion Gap 16 mmol/L BUN 12 (7-17) mg/dL Creatinine 0.7 (0.7-1.2) mg/dL Estimated GFR > 60 ml/min BUN/Creatinine Ratio 17 % Glucose 125 H (65-100) mg/dL Calcium 9.0 (8.4-10.2) mg/dL Total Bilirubin 0.60 (0.1-1.2) mg/dL Direct Bilirubin < 0.2 (0-0.2) mg/dL AST 19 (5-40) units/L ALT 15 (7-56) units/L Alkaline Phosphatase 63 (35-129) units/L Troponin T < 0.010 (0.00-0.029) ng/mL Total Protein 7.3 (6.3-8.2) g/dL Albumin 3.8 L (3.9-5) g/dL Albumin/Globulin Ratio 1.1 % /10/20 Range/Units 13:43 WBC (4.5-11.0) K/mm3 RBC (3.65-5.03) M/mm3 Hgb (10.1-14.3) gm/dl Hct (30.3-42.9) % MCV (79-97) fl MCH (28-32) pg MCHC (30-34) % RDW (13.2-15.2) % Plt Count (140-440) K/mm3 Lymph % (Auto) (13.4-35.0) % [place] % (Auto) (0.0-7.3) % Eos % (Auto) (0.0-4.3) % Baso % (Auto) Lymph # (1.2-5.4) K/mm3 [place] # (0.0-0.8) K/mm3 Eos # (0.0-0.4) K/mm3 Baso # (0.0-0.1) K/mm3 Seg Neutrophils % (40.0-70.0) % Seg Neutrophils # (1.8-7.7) K/mm3 PT (12.2-14.9) Sec. INR (0.87-1.13) APTT (24.2-36.6) Sec. Thrombin Time 14.9 L (15.1-19.6) Sec. Sodium (137-145) mmol/L Potassium (3.6-5.0) mmol/L Chloride (98-107) mmol/L Carbon Dioxide (22-30) mmol/L Anion Gap mmol/L BUN (7-17) mg/dL Creatinine (0.7-1.2) mg/dL Estimated GFR ml/min BUN/Creatinine Ratio % Glucose (65-100) mg/dL Calcium (8.4-10.2) mg/dL Total Bilirubin (0.1-1.2) mg/dL Direct Bilirubin (0-0.2) mg/dL AST (5-40) units/L ALT (7-56) units/L Alkaline Phosphatase (35-129) units/L Troponin T (0.00-0.029) ng/mL Total Protein (6.3-8.2) g/dL Albumin (3.9-5) g/dL Albumin/Globulin Ratio % - Radiology Data Radiology results: report reviewed (Discussed with radiologist) IMPRESSION: 1. 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 2. No acute intracranial abnormality. Chest x-ray no acute process - Thrombolytic Inclusion/Exclusion Thrombolytic Exclusion Criteria: Symptom Onset > 3 Hours Critical Care Time: Yes Critical care time in (mins) excluding proc time.: 45 Critical care attestation.: If time is entered above; I have spent that time in minutes in the direct care of this critically ill patient, excluding procedure time. ED Disposition Clinical Impression: Stroke Qualifiers: CVA mechanism: unspecified Qualified Code(s): I63.9 - Cerebral infarction, unspecified Disposition: DC-09 OP ADMIT IP TO THIS HOSP Is pt being admited?: Yes Does the pt Need Aspirin: Yes Condition: Stable Time of Disposition: 15:22
[2019-07-20 14:24] LABS: Alanine Aminotransferase 15 units/L (7-56); Albumin 3.8 g/dL (3.9-5)
[2019-07-20 14:26] LABS: Bilirubin,Direct < 0.2 mg/dL (0-0.2)
--- NOTE | 2019-07-20 14:28 | XRay Report ---
CHEST 1 VIEW 07/20/2019 2:05 PM INDICATION / CLINICAL INFORMATION: hypertension. COMPARISON: None available. FINDINGS: SUPPORT DEVICES: None. HEART / MEDIASTINUM: Heart is upper normal size for AP portable technique. LUNGS / PLEURA: No significant pulmonary or pleural abnormality. No pneumothorax. ADDITIONAL FINDINGS: No significant additional findings. IMPRESSION: 1. No acute findings. Signer Name: Teodora Self MD Signed: 07/20/2019 2:23 PM Workstation Name: [id number]
[2019-07-20] MEDS ORDERED: ASPIRIN 325 MG TAB PO ONE (15:11)
--- NOTE | 2019-07-20 16:24 | Cat Scan Report ---
CTA neck without and with intravenous contrast material CLINICAL HISTORY: MAIN: aphasia, Rt side weakness [id number] 100ml TECHNIQUE: Following acquisition of a timing bolus 0.625 mm thick contiguous axial scans were obtained from aort ic arch to the skull base during rapid bolus intravenous contrast infusion. In addition to evaluation of axial source images multiplanar reconstructions were produced and reviewed for this report. 3 susan ne MIP reconstructions were produced and reviewed. FINDINGS: Thoracic aorta:No abnormalities are identified along the course of the thoracic aorta..The origins of the great vessels have an unremarkable appearance. Brachiocephalic artery, left common carotid arter y origin and left subclavian artery all have an unremarkable appearance. Right carotid artery:No abnormalities are seen along the course of the RCCA, at the right carotid bif urcation or along the cervical portions of the YESIKA. Left carotid artery: No abnormalities are noted along the course of the left common carotid artery, a t the left carotid bifurcation or along the course of the cervical segments of the LICA. Posterior circulation:The vertebral arteries have an unremarkable appearance. Both vertebral arteries contribute to the basilar artery origin. The basilar artery has an unremarkable appearance. The degree of stenosis, if any, is determined utilizing NASCET like criteria. In this case there is no indication of hemodynamically significant stenosis at the carotid bifurcations or elsewhere. Evaluation of the nonvascular soft tissue structures reveal no abnormality. There is no indication of cervical lymphadenopathy. No abnormalities are seen along the course of the airway. Visualized porti ons of the parotid glands and the submandibular salivary glands have a normal appearance. Thyroid gla nd has a normal appearance. Evaluation of the lung apices reveals no evidence of lung nodule or infil trate. Evaluation of the cervical spine is remarkable for loss of disc height and anterior and posterior ost eophyte formation at the C5-6 level. There is no indication of central canal stenosis or neuroforamin al narrowing.. IMPRESSION: 1. No indication of hemodynamically significant stenosis at the carotid bifurcations or elsewhere. Contrast dose report: Omnipaque 350: 100 ml, administered intravenously All CT examinations performed at this facility utilize modulated dose reduction, iterative reconstruc tion or weight-based dosing, as appropriate, to obtain a radiation dose which is as low as can reason ably be achieved. Signer Name: Haseeb Underwood MD Signed: 07/20/2019 4:20 PM Workstation Name: [email or web address]
--- NOTE | 2019-07-20 16:29 | Cat Scan Report ---
CTA head with intravenous contrast CLINICAL HISTORY: MAIN: aphasia, rt side weakness [id number] 100ml TECHNIQUE: 0.625 mm thick contiguous axial scans were obtained from the skull base to the skull vertex during r apid bolus administration of intravenous contrast material. Multiplanar reconstructions were produced in the coronal and sagittal planes. In addition 3 plane MIP instructions were produced and reviewed for this report. The axial source images and reconstructed images were reviewed for this report. CONTRAST DOSE REPORT: Omnipaque 350: 100 ml administered intravenously. All CT scans at this location are performed using CT dose reduction for ALARA by means of automated e xposure control. FINDINGS: Internal carotid arteries:Familia, cavernous, opthalmic, clinoid and supraclinoid segments of the ICAs have an unremarkable appearance. Middle cerebral arteries: Bilaterally symmetrical M1 segments of the middle cerebral arteries are dem onstrated. No abnormalities are seen along the course of the insular or opercular branches. Anterior cerebral arteries: Laterally symmetrical A1 segments are noted. An intact anterior communica ting artery is observed. A 2 segments of the anterior cerebral artery and visualized pericallosal bra nches have an unremarkable appearance. Vertebral arteries: Balanced vertebral arteries both contribute to the basilar artery origin. Basilar artery has an unremarkable appearance. Basilar artery: Basilar artery has an unremarkable appearance. Posterior cerebral arteries: Symmetrical appearing posterior cerebral arteries are demonstrated. Bila teral posterior communicating arteries are identified. Dural sinuses: Dural venous sinuses are well demonstrated on this exam. There is no evidence of dural sinus thrombosis. IMPRESSION: No significant abnormality on CTA head. No indication of large vessel occlusion or intracranial steno sis. Signer Name: Haseeb Underwood MD Signed: 07/20/2019 4:25 PM Workstation Name: [id number]
[2019-07-20] MEDS ORDERED: IBUPROFEN 600 MG TAB PO PRN (21:30)
[2019-07-20] MEDS ORDERED: DICYCLOMINE 10 MG CAP PO PRN (21:30)
[2019-07-20] MEDS ORDERED: ONDANSETRON 4 MG ODT TAB PO PRN (21:30)
[2019-07-20] MEDS ORDERED: ACETAMINOPHEN W/CODEINE 300-30 MG TAB PO PRN (21:30)
[2019-07-20] MEDS ORDERED: ONDANSETRON 4 MG/2 ML INJ IV PRN ×2 (21:31→21:41)
[2019-07-20] MEDS ORDERED: ACETAMINOPHEN 325 MG TAB PO PRN ×2 (21:31→21:41)
[2019-07-20] MEDS ORDERED: HYDROmorphone 1 MG/1 ML INJ IV PRN (21:37)
[2019-07-20] MEDS ORDERED: oxyCODONE /ACETAMINOPHEN 5-325MG TAB PO PRN (21:37)
[2019-07-20] MEDS ORDERED: METOCLOPRAMIDE 10 MG TAB PO PRN (21:41)
[2019-07-20] MEDS ORDERED: MAGNESIUM HYDROXIDE (MOM) ORAL LIQD UDC PO PRN (21:41)
[2019-07-20] MEDS ORDERED: PROMETHAZINE 25 MG RECT SUPP PR PRN (21:41)
--- NOTE | 2019-07-20 21:49 | History and Physical Report ---
History of Present Illness Date of examination: 07/20/19 Date of admission: 07/20/19 15:22 Chief complaint: RUE weakness since last night History of present illness: 48-year-old female with pmh of T2dm ,HTN and recurrentt CCOnstipation comes in for Rt side weakness and Dysarthria.Patient is not clear about duration.Says it is since this AM. Akila says her symptoms started last night.No one present at bedside to corroborate her history.No fever or chills.Weakness is confined to RUE.RLE is normal.To someone else she said her weakness has been there for 2 months which could not be corroborated.No syncope or seizures Past Medical History Previous Medical History?: Yes HTN T2dm Constipation-recurrent Additional medical history: Ovarian cyst, fibroids, gallstones - Surgical History Past Surgical History?: Yes Additional Surgical History: gastric bypass - Social History Smoking Status: Current Every Day Smoker Substance Use Type: Alcohol FH HTN - Medications Home Medications: Home Medications Medication Instructions Recorded Confirmed Last Taken Type Sennosides Tab [Senokot] 8.6 mg PO Q12H #30 tablet 02/25/18 Unknown Rx amLODIPine 10 mg PO QDAY #30 tablet 02/25/18 Unknown Rx Acetaminophen/Codeine [Tylenol 1 tab PO Q6H PRN #14 tab 06/27/18 Unknown Rx /Codeine # 3 tab] Dicyclomine [Bentyl] 10 mg PO DAILY PRN #14 capsule 06/27/18 Unknown Rx Docusate Sodium [Colace] 100 mg PO BID #20 capsule 06/27/18 Unknown Rx Ibuprofen 600 mg PO Q6HR PRN #20 tablet 06/27/18 Unknown Rx Ondansetron [Zofran Odt] 4 mg PO Q8HR PRN #14 tab.rapdis 06/27/18 Unknown Rx Polyethylene Glycol 3350 [Miralax] 119 gm PO DAILY #7 powder 06/27/18 Unknown Rx metFORMIN [Glucophage] 500 mg PO BID 30 Days #60 tablet 06/27/18 Unknown Rx Review of Systems ROS: Stated complaint: POSS STROKE Other details as noted in HPI Constitutional: denies: chills, fever Eyes: denies: eye pain, eye discharge, vision change ENT: denies: ear pain, throat pain Respiratory: denies: cough, shortness of breath, wheezing Cardiovascular: denies: chest pain, palpitations Endocrine: no symptoms reported Gastrointestinal: denies: abdominal pain, nausea, diarrhea Genitourinary: denies: urgency, dysuria, discharge Musculoskeletal: denies: back pain, joint swelling, arthralgia Skin: denies: rash, lesions Neurological: as per HPI, weakness. denies: headache, paresthesias Psychiatric: anxiety. denies: depression Hematological/Lymphatic: denies: easy bleeding, easy bruising Medications and Allergies Allergies Allergy/AdvReac Type Severity Reaction Status Date / Time No Known Allergies Allergy Unverified 02/23/18 13:48 Home Medications Medication Instructions Recorded Confirmed Last Taken Type Sennosides Tab [Senokot] 8.6 mg PO Q12H #30 tablet 02/25/18 Unknown Rx amLODIPine 10 mg PO QDAY #30 tablet 02/25/18 Unknown Rx Acetaminophen/Codeine [Tylenol 1 tab PO Q6H PRN #14 tab 06/27/18 Unknown Rx /Codeine # 3 tab] Dicyclomine [Bentyl] 10 mg PO DAILY PRN #14 capsule 06/27/18 Unknown Rx Docusate Sodium [Colace] 100 mg PO BID #20 capsule 06/27/18 Unknown Rx Ibuprofen 600 mg PO Q6HR PRN #20 tablet 06/27/18 Unknown Rx Ondansetron [Zofran Odt] 4 mg PO Q8HR PRN #14 tab.rapdis 06/27/18 Unknown Rx Polyethylene Glycol 3350 [Miralax] 119 gm PO DAILY #7 powder 06/27/18 Unknown Rx metFORMIN [Glucophage] 500 mg PO BID 30 Days #60 tablet 06/27/18 Unknown Rx Exam - Constitutional Vitals: Temp Pulse Resp BP Pulse Ox 97.5 F L 66 16 171/75 99 07/20/19 18:19 07/20/19 19:30 07/20/19 19:30 07/20/19 19:30 07/20/19 19:30 General appearance: Present: no acute distress, well-nourished - EENT Eyes: Present: PERRL ENT: hearing intact, clear oral mucosa - Neck Neck: Present: supple, normal ROM - Respiratory Respiratory effort: normal Respiratory: bilateral: CTA - Cardiovascular Heart rate: 78 Rhythm: regular Heart Sounds: Present: S1 & S2. Absent: rub, click - Extremities Extremities: no ischemia, pulses intact, pulses symmetrical, No edema Peripheral Pulses: within normal limits - Abdominal General gastrointestinal: Present: soft, non-tender, non-distended, normal bowel sounds Female genitourinary: Present: normal - Rectal Rectal Exam: deferred - Integumentary Integumentary: Present: clear, warm, dry - Musculoskeletal Musculoskeletal: strength equal bilaterally, right sided weakness - Psychiatric Psychiatric: appropriate mood/affect, intact judgment & insight - Neurologic Neurologic: CNII-XII intact, focal deficits (RUE weakness--3/5 power) - Allied Health Allied health notes reviewed: nursing, case management Results - Labs CBC & Chem 7: 07/21/19 04:00 07/21/19 04:00 Labs: Laboratory Last Values WBC 9.0 K/mm3 (4.5-11.0) 07/20/19 13:43 RBC 4.27 M/mm3 (3.65-5.03) 07/20/19 13:43 Hgb 13.4 gm/dl (10.1-14.3) 07/20/19 13:43 Hct 39.5 % (30.3-42.9) 07/20/19 13:43 MCV 93 fl (79-97) 07/20/19 13:43 MCH 31 pg (28-32) 07/20/19 13:43 MCHC 34 % (30-34) 07/20/19 13:43 RDW 14.1 % (13.2-15.2) 07/20/19 13:43 Plt Count 206 K/mm3 (140-440) 07/20/19 13:43 Lymph % (Auto) 20.8 % (13.4-35.0) 07/20/19 13:43 Benton % (Auto) 3.3 % (0.0-7.3) 07/20/19 13:43 Eos % (Auto) 0.8 % (0.0-4.3) 07/20/19 13:43 Baso % (Auto) Safety Attendant 07/20/19 13:43 Lymph # 1.9 K/mm3 (1.2-5.4) 07/20/19 13:43 Benton # 0.3 K/mm3 (0.0-0.8) 07/20/19 13:43 Eos # 0.1 K/mm3 (0.0-0.4) 07/20/19 13:43 Baso # 0.0 K/mm3 (0.0-0.1) 07/20/19 13:43 Seg Neutrophils % 74.7 % (40.0-70.0) H 07/20/19 13:43 Seg Neutrophils # 6.7 K/mm3 (1.8-7.7) 07/20/19 13:43 PT 12.0 Sec. (12.2-14.9) L 07/20/19 13:43 INR 0.90 (0.87-1.13) 07/20/19 13:43 APTT 27.1 Sec. (24.2-36.6) 07/20/19 13:43 Thrombin Time 14.9 Sec. (15.1-19.6) L 07/20/19 13:43 Sodium 136 mmol/L (137-145) L 07/20/19 13:43 Potassium 3.9 mmol/L (3.6-5.0) 07/20/19 13:43 Chloride 102.1 mmol/L (98-107) 07/20/19 13:43 Carbon Dioxide 22 mmol/L (22-30) 07/20/19 13:43 Anion Gap 16 mmol/L 07/20/19 13:43 BUN 12 mg/dL (7-17) 07/20/19 13:43 Creatinine 0.7 mg/dL (0.7-1.2) 07/20/19 13:43 Estimated GFR > 60 ml/min 07/20/19 13:43 BUN/Creatinine Ratio 17 % 07/20/19 13:43 Glucose 125 mg/dL (65-100) H 07/20/19 13:43 Calcium 9.0 mg/dL (8.4-10.2) 07/20/19 13:43 Total Bilirubin 0.60 mg/dL (0.1-1.2) 07/20/19 13:43 Direct Bilirubin < 0.2 mg/dL (0-0.2) 07/20/19 13:43 AST 19 units/L (5-40) 07/20/19 13:43 ALT 15 units/L (7-56) 07/20/19 13:43 Alkaline Phosphatase 63 units/L (35-129) 07/20/19 13:43 Troponin T < 0.010 ng/mL (0.00-0.029) 07/20/19 13:43 Total Protein 7.3 g/dL (6.3-8.2) 07/20/19 13:43 Albumin 3.8 g/dL (3.9-5) L 07/20/19 13:43 Albumin/Globulin Ratio 1.1 % 07/20/19 13:43 Short CBC 07/20/19 Range/Units 13:43 WBC 9.0 (4.5-11.0) K/mm3 Hgb 13.4 (10.1-14.3) gm/dl Hct 39.5 (30.3-42.9) % Plt Count 206 (140-440) K/mm3 BMP 07/20/19 13:43 Sodium 136 L Potassium 3.9 Chloride 102.1 Carbon Dioxide 22 BUN 12 Creatinine 0.7 Glucose 125 H Calcium 9.0 Cardiac Enzymes 07/20/19 Range/Units 13:43 Troponin T < 0.010 (0.00-0.029) ng/mL Liver Function 07/20/19 Range/Units 13:43 Total Bilirubin 0.60 (0.1-1.2) mg/dL Direct Bilirubin < 0.2 (0-0.2) mg/dL AST 19 (5-40) units/L ALT 15 (7-56) units/L Alkaline Phosphatase 63 (35-129) units/L Albumin 3.8 L (3.9-5) g/dL Short CBC 07/20/19 07/21/19 Range/Units 13:43 04:00 WBC 9.0 9.1 (4.5-11.0) K/mm3 Hgb 13.4 13.3 (10.1-14.3) gm/dl Hct 39.5 36.8 (30.3-42.9) % Plt Count 206 191 (140-440) K/mm3 BMP 07/20/19 07/21/19 13:43 04:00 Sodium 136 L 139 Potassium 3.9 3.5 L Chloride 102.1 103.5 Carbon Dioxide 22 22 BUN 12 10 Creatinine 0.7 0.7 Glucose 125 H 98 Calcium 9.0 9.0 Cardiac Enzymes 07/20/19 Range/Units 13:43 Troponin T < 0.010 (0.00-0.029) ng/mL Liver Function 07/20/19 07/21/19 Range/Units 13:43 04:00 Total Bilirubin 0.60 0.50 (0.1-1.2) mg/dL Direct Bilirubin < 0.2 (0-0.2) mg/dL AST 19 18 (5-40) units/L ALT 15 14 (7-56) units/L Alkaline Phosphatase 63 60 (35-129) units/L Albumin 3.8 L 3.8 L (3.9-5) g/dL - Imaging and Cardiology EKG: report reviewed CT Scan - head: report reviewed Flores/IV: IV Catheter Type [Left INT / Saline Lock Antecubital] IV Catheter Type [Right Hand] INT / Saline Lock Assessment and Plan Advance Directives: Yes - Patient Problems (1) Acute CVA (cerebrovascular accident) Current Visit: Yes Status: Acute Plan to address problem: CVA w/u Neuro consult requested MRICDS and Echo in AM ASA initiated (2) T2DM (type 2 diabetes mellitus) Current Visit: Yes Status: Chronic Qualifiers: Diabetes mellitus continuous churn buttermaker insulin use: without continuous churn buttermaker use Plan to address problem: Coverage for now (3) HTN (hypertension) Current Visit: Yes Status: Chronic Plan to address problem: Cont Amlodipine and Adjust medicines (4) DVT prophylaxis Current Visit: No Status: Acute Plan to address problem: On Heparin and GI prophylaxis
[2019-07-20] MEDS: SODIUM CHLORIDE 0.9% 1000 ML 1,000 ML IV SCH (22:38)
[2019-07-20] MEDS: SENNOSIDES 8.6 MG TAB PO SCH (22:41)
[2019-07-20] MEDS: FAMOTIDINE 20 MG TAB PO SCH (22:42)
[2019-07-20] MEDS: DOCUSATE SODIUM 100 MG CAP PO SCH (22:43)
[2019-07-20] MEDS: amLODIPine 10 MG TAB PO SCH (23:20)
[2019-07-20] MEDS: metFORMIN 500 MG TAB PO SCH (23:55)
[2019-07-21 04:41] LABS: Basophils % (Auto) 0.5 % (0.0-1.8); Eosinophils # (Auto) 0.1 K/mm3 (0.0-0.4); Eosinophils % (Auto) 0.9 % (0.0-4.3); Lymphocytes # (Auto) 2.3 K/mm3 (1.2-5.4); Lymphocytes % (Auto) 25.3 % (13.4-35.0); Mean Corpuscular HGB Conc 36 % (30-34); Mean Corpuscular Volume 90 fl (79-97); Monocytes # (Auto) 0.4 K/mm3 (0.0-0.8); Monocytes % (Auto) 4.9 % (0.0-7.3); Platelet Count 191 K/mm3 (140-440); Red Cell Distribution Width 14.1 % (13.2-15.2)
[2019-07-21 04:49] LABS: Hematocrit 36.8 % (30.3-42.9); Hemoglobin 13.3 gm/dl (10.1-14.3)
[2019-07-21 05:03] LABS: Alanine Aminotransferase 14 units/L (7-56); Albumin 3.8 g/dL (3.9-5); BUN/Creatinine Ratio 14; Blood Urea Nitrogen 10 mg/dL (7-17); Hemolysis Index 5; LDL Cholesterol,Direct 118 mg/dL (50-130)
[2019-07-21 05:26] LABS: HDL Cholesterol 82 mg/dL (40-59)
[2019-07-21] MEDS: hydrALAZINE 20 MG/1 ML INJ IV PRN ×2 (05:59→12:36)
[2019-07-21] MEDS ORDERED: POTASSIUM CHLORIDE ER 20 MEQ TAB PO ONE ×2 (09:00→13:00)
--- NOTE | 2019-07-21 10:24 | Vascular Lab Report ---
BILATERAL CAROTID DOPPLER ULTRASOUND INDICATION : stroke TECHNIQUE: Grayscale and color Doppler imaging performed through the neck. COMPARISON: None FINDINGS: Right: There is no significant atherosclerotic disease. Peak systolic velocity in the CCA is 113 cm /s with end-diastolic velocity of 26 cm/s. Peak systolic velocity in the proximal ICA is 123 cm/s wit h end-diastolic velocity of 38 cm/s. ICA to CCA ratio is less than 2. There is antegrade flow in the ECA and the vertebral artery. Left: There is no significant atherosclerotic disease. Peak systolic velocity in the CCA is 78 cm/s w ith end-diastolic velocity of 18 cm/s. Peak systolic velocity in the proximal ICA is 120 cm/s with en d-diastolic velocity of 31 cm/s. ICA to CCA ratio is less than 2. There is antegrade flow in the ECA and the vertebral artery. IMPRESSION: No hemodynamically significant stenosis by NASCET criteria. Doppler velocities indicate l ess than 50% luminal narrowing throughout both carotid systems. Signer Name: Tavo Maynard Jr, MD Signed: 07/21/2019 10:20 AM Workstation Name: [id number]
[2019-07-21] MEDS: FAMOTIDINE 20 MG TAB PO SCH ×2 (12:35→21:00)
[2019-07-21] MEDS: DOCUSATE SODIUM 100 MG CAP PO SCH ×2 (12:35→21:00)
[2019-07-21] MEDS: ASPIRIN 325 MG TAB PO SCH (12:36)
[2019-07-21] MEDS: hydroCHLOROthiazide 25 MG TAB PO SCH (12:36)
[2019-07-21] MEDS: metFORMIN 500 MG TAB PO SCH ×2 (12:36→17:45)
[2019-07-21] MEDS: SENNOSIDES 8.6 MG TAB PO SCH ×2 (12:36→21:00)
[2019-07-21] MEDS: amLODIPine 10 MG TAB PO SCH (12:36)
--- NOTE | 2019-07-21 13:17 | Magnetic Resonance Report ---
MR brain wo con INDICATION / CLINICAL INFORMATION: 48 years Female; MAIN: stroke, slurred speech and rt sided weakness. TECHNIQUE: Multiplanar, multisequence MR images of the brain were obtained. Some motion artifact. COMPARISON: CT-07/20/2019 FINDINGS: BRAIN / INTRACRANIAL CONTENTS: Small corpus striatal infarct is seen on the left which is acute in ag e-positive on ADC map. There is also small focus of ischemia in the head of the left caudate. Otherwise, no acute hemorrhage, mass effect, midline shift, hydrocephalus, or acute, large territori al infarct. No chronic infarct or atrophy. There are mild areas of increased signal intensity on FLAIR imaging in the white matter of the cerebr al hemispheres. These are nonspecific findings and may be related to microangiopathy (hypertension, d iabetes, atherosclerosis), given the patient's age. CRANIOCERVICAL JUNCTION: No significant abnormality. VASCULAR FLOW-VOIDS: No significant abnormality. ORBITS: No significant abnormality of visualized orbits. SINUSES / MASTOIDS: Mild mucosal thickening seen in the ethmoids. Mucous retention cyst suggested in the left maxillary antrum. ADDITIONAL FINDINGS: None. IMPRESSION: 1. Acute ischemia seen in the left gangliocapsular region as described above, without signs of hemorr hagic transformation. Signer Name: Christian Berg MD, III Signed: 07/21/2019 1:12 PM Workstation Name: [id number]
--- NOTE | 2019-07-21 14:02 | Progress Note ---
Subjective Date of service: 07/21/19 Interval history: weent over the old CT of brain and there is deep white matter stroke of the left hemisphere noted that has Caterina CHRONIC APPEARANCE... THE mri IMAGES ARE NOT YET UP OFF THE COMPUTER I will see if Dr. Caesar jain to assess the actual images I will leave note on this after reviewing the films reviewed the prior imaging studies Objective - Vital Sign Vital Signs - 12hr 07/21/19 07/21/19 07/21/19 04:16 05:59 08:13 Temperature 97.9 F 98.4 F Pulse Rate 63 71 Respiratory 16 Rate Blood Pressure 168/75 178/110 169/87 O2 Sat by Pulse 98 97 Oximetry 07/21/19 07/21/19 12:16 12:36 Temperature 97.3 F L Pulse Rate 87 87 Respiratory Rate Blood Pressure 184/99 184/99 O2 Sat by Pulse 98 Oximetry - Laboratory Findings CBC and BMP: 07/21/19 04:00 07/21/19 04:00 Abnormal Lab Findings: Abnormal Labs 07/20/19 07/20/19 07/20/19 13:43 13:43 13:43 MCH MCHC Seg Neutrophils % 74.7 H PT 12.0 L Thrombin Time Sodium 136 L Potassium Glucose 125 H POC Glucose Albumin 3.8 L Cholesterol HDL Cholesterol 07/20/19 07/20/19 07/21/19 13:43 13:49 04:00 MCH 33 H MCHC 36 H Seg Neutrophils % PT Thrombin Time 14.9 L Sodium Potassium Glucose POC Glucose 123 H Albumin Cholesterol HDL Cholesterol 07/21/19 07/21/19 04:00 12:29 MCH MCHC Seg Neutrophils % PT Thrombin Time Sodium Potassium 3.5 L Glucose POC Glucose 183 H Albumin 3.8 L Cholesterol 205 H HDL Cholesterol 82 H
[2019-07-21] MEDS ORDERED: ALPRAZolam 0.5 MG TAB PO PRN (14:29)
--- NOTE | 2019-07-21 14:35 | Progress Note ---
Assessment and Plan Assessment and plan: 48-year-old female with pmh of T2dm ,HTN and recurrent Constipation comes in for Rt side weakness and Dysarthria. Patient is not clear about duration on admission had told him that started this morning but later told me it has been ongoing for about 48 hours. Akila says her symptoms started last night.No one present at bedside to corroborate her history. No fever or chills.Weakness is confined to RUE.RLE is normal. To someone else she said her weakness has been there for 2 months which could not be corroborated. No syncope or seizures 1) Acute CVA (cerebrovascular accident) Current Visit: Yes Status: Acute Plan to address problem: CVA on mri report Neuro consult requested echo pending Statin STARTED ASA initiated (2) T2DM (type 2 diabetes mellitus) Current Visit: Yes Status: Chronic Qualifiers: Diabetes mellitus intermodal dispatcher insulin use: without senior living use Plan to address problem: Coverage for now (3) HTN (hypertension) urgency Current Visit: Yes Status: Chronic Plan to address problem: Cont Amlodipine and Adjust medicines Patient reports that she was on clonidine and run out about a week ago. Also she is unsure of the date. Will resume clonidine have advised the need to follow-up with her primary care physician and keep blood pressure diary for better coordination. (4) Depression/ Anxiety Patient with longstanding history of depression and anxiety very emotional tells me that if she stays in the hospital her blood pressure will not improve. We will add Xanax as needed. We do not have a list of her anxiety medication I will also put a consultation to mental health to assist. Extensive counseling given to her considering that she does not have any residual deficits from the CVA. (5) DVT prophylaxis Current Visit: No Status: Acute Plan to address problem: On Heparin and GI prophylaxis History Interval history: Patient seen and evaluated this morning later this afternoon nursing staff called reporting that the patient was emotional while in the bathroom refusing some help appeared to have altered mental status although on my evaluation her mental status is intact. She did nevertheless is very emotional and concerned about the stroke. She is not forthcoming with a lot of other information. Hospitalist Physical - Physical exam Narrative exam: VITAL SIGNS: Reviewed. GENERAL: The patient appears normally developed, Vital signs as documented. HEAD: No signs of head trauma. EYES: Pupils are equal. Extraocular motions intact. EARS: Hearing grossly intact. MOUTH: Oropharynx is normal. NECK: No adenopathy, no JVD. CHEST: Chest with clear breath sounds bilaterally. No wheezes, rales, or rhonc hi. CARDIAC: Regular rate and rhythm. S1 and S2, without murmurs, gallops, or rubs. VASCULAR: No Edema. Peripheral pulses normal and equal in all extremities. ABDOMEN: Soft, non tender and non distended. No rebound or guarding, and no masses palpated. Bowel Sounds normal. MUSCULOSKELETAL: Good range of motion of all major joints. Extremities without clubbing, cyanosis or edema. NEUROLOGIC EXAM: Alert and oriented x 3 No focal sensory or strength deficits. Speech normal. Follows commands. PSYCHIATRIC: Mood emotional and elevated . SKIN: detail exam as documented in skin assessment - Constitutional Vitals: Temp Pulse Resp BP Pulse Ox 97.3 F L 87 16 184/99 98 07/21/19 12:16 07/21/19 12:36 07/21/19 04:16 07/21/19 12:36 07/21/19 12:16 General appearance: Present: no acute distress, well-nourished Results - Labs CBC & Chem 7: 07/21/19 04:00 07/21/19 04:00 Labs: Laboratory Last Values WBC 9.1 K/mm3 (4.5-11.0) 07/21/19 04:00 RBC 4.10 M/mm3 (3.65-5.03) 07/21/19 04:00 Hgb 13.3 gm/dl (10.1-14.3) 07/21/19 04:00 Hct 36.8 % (30.3-42.9) 07/21/19 04:00 MCV 90 fl (79-97) 07/21/19 04:00 MCH 33 pg (28-32) H 07/21/19 04:00 MCHC 36 % (30-34) H 07/21/19 04:00 RDW 14.1 % (13.2-15.2) 07/21/19 04:00 Plt Count 191 K/mm3 (140-440) 07/21/19 04:00 Lymph % (Auto) 25.3 % (13.4-35.0) 07/21/19 04:00 Churchill % (Auto) 4.9 % (0.0-7.3) 07/21/19 04:00 Eos % (Auto) 0.9 % (0.0-4.3) 07/21/19 04:00 Baso % (Auto) 0.5 % (0.0-1.8) 07/21/19 04:00 Lymph # 2.3 K/mm3 (1.2-5.4) 07/21/19 04:00 Churchill # 0.4 K/mm3 (0.0-0.8) 07/21/19 04:00 Eos # 0.1 K/mm3 (0.0-0.4) 07/21/19 04:00 Baso # 0.0 K/mm3 (0.0-0.1) 07/21/19 04:00 Seg Neutrophils % 68.4 % (40.0-70.0) 07/21/19 04:00 Seg Neutrophils # 6.2 K/mm3 (1.8-7.7) 07/21/19 04:00 PT 12.0 Sec. (12.2-14.9) L 07/20/19 13:43 INR 0.90 (0.87-1.13) 07/20/19 13:43 APTT 27.1 Sec. (24.2-36.6) 07/20/19 13:43 Thrombin Time 14.9 Sec. (15.1-19.6) L 07/20/19 13:43 Sodium 139 mmol/L (137-145) 07/21/19 04:00 Potassium 3.5 mmol/L (3.6-5.0) L 07/21/19 04:00 Chloride 103.5 mmol/L (98-107) 07/21/19 04:00 Carbon Dioxide 22 mmol/L (22-30) 07/21/19 04:00 Anion Gap 17 mmol/L 07/21/19 04:00 BUN 10 mg/dL (7-17) 07/21/19 04:00 Creatinine 0.7 mg/dL (0.7-1.2) 07/21/19 04:00 Estimated GFR > 60 ml/min 07/21/19 04:00 BUN/Creatinine Ratio 14 % 07/21/19 04:00 Glucose 98 mg/dL (65-100) 07/21/19 04:00 POC Glucose 183 (70-105) H 07/21/19 12:29 Hemoglobin A1c 5.4 % (4-6) 07/20/19 13:43 Calcium 9.0 mg/dL (8.4-10.2) 07/21/19 04:00 Total Bilirubin 0.50 mg/dL (0.1-1.2) 07/21/19 04:00 Direct Bilirubin < 0.2 mg/dL (0-0.2) 07/20/19 13:43 AST 18 units/L (5-40) 07/21/19 04:00 ALT 14 units/L (7-56) 07/21/19 04:00 Alkaline Phosphatase 60 units/L (35-129) 07/21/19 04:00 Troponin T < 0.010 ng/mL (0.00-0.029) 07/20/19 13:43 Total Protein 6.9 g/dL (6.3-8.2) 07/21/19 04:00 Albumin 3.8 g/dL (3.9-5) L 07/21/19 04:00 Albumin/Globulin Ratio 1.2 % 07/21/19 04:00 Triglycerides 103 mg/dL (2-149) 07/21/19 04:00 Cholesterol 205 mg/dL (50-199) H 07/21/19 04:00 LDL Cholesterol Direct 118 mg/dL (50-130) 07/21/19 04:00 HDL Cholesterol 82 mg/dL (40-59) H 07/21/19 04:00 Cholesterol/HDL Ratio 2.50 % 07/21/19 04:00 - Diagnostic Impressions Diagnostic Impressions: Echocardiogram 07/20/19 21:45 Transthoracic Echocardiogram Indication: Stroke BP: 178/110 HR: 78 Conclusions *Global left ventricular systolic function is normal. *The estimated ejection fraction is 60-65%. *Mild to moderate concentric left ventricular hypertrophy is observed. *The left atrium is mild-moderately dilated. *There is trace of mitral regurgitation. *There is trace tricuspid regurgitation. *A patent foramen ovale is not demonstrated by agitated saline contrast. Findings Left Ventricle: The left ventricular chamber size is normal. Mild to moderate concentric left ventricular hypertrophy is observed. Global left ventricular systolic function is normal. The estimated ejection fraction is 60-65%. Left Atrium: The left atrium is mild to moderately dilated. Right Ventricle: The right ventricular cavity size is normal. The right ventricular global systolic function is normal. Right Atrium: The right atrial cavity size is normal. A patent foramen ovale is not demonstrated by agitated saline contrast. Aortic Valve: The aortic valve is trileaflet. There is no evidence of aortic regurgitation. There is no evidence of aortic stenosis. Mitral Valve: The mitral valve leaflets appear normal. There is trace of mitral regurgitation. There is no evidence of mitral stenosis. Tricuspid Valve: The tricuspid valve leaflets are normal. There is trace tricuspid regurgitation. No pulmonary hypertension is noted. Pulmonic Valve: There is trace pulmonic regurgitation. Pericardium: There is no pericardial effusion. Aorta: There is no dilatation of the ascending aorta. There is no dilatation of the aortic arch. There is no dilatation of the aortic root. Venous: The inferior vena cava appears normal in size. Contrast: Intravenous agitated saline contrast was used to assess intracardiac shunting. Measurements Chambers 2D Name Value Normal Range IVSd (2D) 1.23 cm (0.6 - 1.1) LVPWd (2D) 1.23 cm (0.6 - 1.1) LVIDd (2D) 4.2 cm (3.7 - 5.6) LVIDs (2D) 2.63 cm (2 - 3.8) LV FS (2D) 37.51 % - EF Teichholz (2D) 67.94 % - Ao root diameter (2D) 2.94 cm (2 - 3.7) Volumes/Mass Name Value Normal Range LA ESV SP 4CH (A/L) 75.45 ml - LA ESV SP 2CH (A/L) 69.73 ml - LA ESV BP (A/L) 72.56 ml - LA ESV BP (A/L) index 37.99 ml/m2 - LA ESV SP 4CH (MOD) 71.08 ml - LA ESV SP 2CH (MOD) 67.17 ml - LA ESV BP (MOD) 68.99 ml - LA ESV BP (MOD) index 36.12 ml/m2 - Diastolic/Systolic Function Name Value Normal Range MV E-wave Vmax 0.89 m/sec - MV deceleration time 244.34 msec - MV A-wave Vmax 0.87 m/sec - MV E:A ratio 1.02 ratio - Aortic Valve Name Value Normal Range AV Vmax 1.44 m/sec - AV VTI 33.59 cm - AV peak gradient 8.29 mmHg - AV mean gradient 4.85 mmHg - LVOT diameter 2.22 cm - LVOT Vmax 1.31 m/sec - LVOT VTI 31.53 cm - LVOT peak gradient 6.91 mmHg - LVOT mean gradient 3.42 mmHg - SV LVOT 122.5 ml - DEVYN (continuity Vmax) 3.55 cm2 - DEVYN (continuity VTI) 3.65 cm2 - Tricuspid Valve Name Value Normal Range TR Vmax 2.08 m/sec - TR peak gradient 17 mmHg - RAP 3 mmHg - RVSP 20 mmHg - IVC diameter 1.59 cm (1.2 - 2.3) Pulmonic Valve/Qp:Qs Name Value Normal Range PV Vmax 0.96 m/sec - PV peak gradient 3.68 mmHg - PV acceleration time 79.92 msec - Flores/IV: Voiding Method Toilet IV Catheter Type [Left INT / Saline Lock Antecubital] IV Catheter Type [Right Hand] INT / Saline Lock Active Medications - Current Medications Current Medications: Generic Name Dose Route Start Last Admin Trade Name Freq PRN Reason Stop Dose Admin Acetaminophen 650 mg 07/20/19 21:31 Tylenol PO Q4H PRN Pain MILD(1-3)/Fever >100.5/PINEDA Alprazolam 0.5 mg 07/21/19 14:29 Xanax PO Q8H PRN Anxiety Amlodipine Besylate 10 mg 07/20/19 22:00 07/21/19 12:36 Amlodipine PO 10 mg QDAY FABIAN Administration Aspirin 325 mg 07/21/19 10:00 07/21/19 12:36 Aspirin PO 325 mg QDAY FABIAN Administration Atorvastatin Calcium 40 mg 07/20/19 22:00 07/20/19 22:41 Lipitor PO 40 mg QHS FABIAN Administration Bisacodyl 10 mg 07/20/19 21:41 Dulcolax [place] QDAY PRN Constipation Dicyclomine HCl 10 mg 07/20/19 21:30 Bentyl PO DAILY PRN Spasms Docusate Sodium 100 mg 07/20/19 22:00 07/21/19 12:35 Colace PO 100 mg BID FABIAN Administration Famotidine 20 mg 07/20/19 22:00 07/21/19 12:35 Pepcid PO 20 mg BID FABIAN Administration Hydralazine HCl 5 mg 07/21/19 04:20 07/21/19 12:36 Apresoline IV 5 mg Q6HR PRN Administration Hypertension Hydrochlorothiazide 25 mg 07/21/19 10:00 07/21/19 12:36 Hctz PO 25 mg QDAY FABIAN Administration Hydromorphone HCl 0.5 mg 07/20/19 21:37 Dilaudid IV Q3H PRN Pain , Severe (7-10) Ibuprofen 600 mg 07/20/19 21:30 07/21/19 08:43 Ibuprofen PO 600 mg Q6HR PRN Administration Pain, Moderate (4-6) Magnesium Hydroxide 30 ml 07/20/19 21:41 Milk Of Magnesia PO Q4H PRN Constipation Metformin HCl 500 mg 07/20/19 22:00 07/21/19 12:36 Glucophage PO 500 mg BIDDIAB FABIAN Administration Metoclopramide HCl 10 mg 07/20/19 21:41 Reglan PO Q6H PRN Nausea And Vomiting Ondansetron HCl 4 mg 07/20/19 21:31 Zofran IV Q3H PRN Nausea And Vomiting Oxycodone/Acetaminophen 1 tab 07/20/19 21:37 Percocet 5/325 PO Q6H PRN Pain, Moderate (4-6) Promethazine HCl 25 mg 07/20/19 21:41 Phenergan AL Q6H PRN Nausea And Vomiting Senna 8.6 mg 07/20/19 22:00 07/21/19 12:36 Senokot PO 8.6 mg Q12H FABIAN Administration Sodium Chloride 10 ml 07/20/19 22:00 07/21/19 12:37 Sodium Chloride Flush Syringe 10 Ml IV Not Given BID FABIAN Sodium Chloride 10 ml 07/20/19 21:31 Sodium Chloride Flush Syringe 10 Ml IV PRN PRN LINE FLUSH
[2019-07-21] MEDS: cloNIDine 0.1 MG TAB PO SCH (17:45)
[2019-07-21] MEDS: SODIUM CHLORIDE 0.9% 1000 ML 1,000 ML IV SCH (17:46)
--- NOTE | 2019-07-22 08:13 | Discharge Summary ---
Providers - Providers Date of Admission: 07/20/19 15:22 Attending physician: KAMRYN MUÑIZ MD 07/20/19 21:37 Consult to Physician [CONS] Routine Comment: Consulting Provider: JACKELIN PACHECO Physician Instructions: Reason For Exam: CVA 07/20/19 21:41 Occupational Therapy Evaluate and Treat [CONS] Routine Comment: Reason For Exam: Neuro deficits Physical Therapy Evaluation and Treat [CONS] Routine Comment: Reason For Exam: Neuro deficits 07/21/19 13:49 Consult to Mental Health [CONS] Routine Reason For Exam: acute psychosis Primary care physician: COSMETICIAN APPRENTICE Hospitalization Reason for admission: CVA Condition: Stable Hospital course: 48-year-old female with pmh of T2dm ,HTN and recurrent Constipation comes in for Rt side weakness and Dysarthria. Patient is not clear about duration on admission had told him that started this morning but later told me it has been ongoing for about 48 hours. Patient says her symptoms started last night.No one present at bedside to corroborate her history. No fever or chills.Weakness is confined to RUE.RLE is normal. To someone else she said her weakness has been there for 2 months which could not be corroborated. No syncope or seizures 1) Acute CVA (cerebrovascular accident) Current Visit: Yes Status: Acute Plan to address problem: Remote caudate nucleus CVA was not reported on CT although MRI was more descriptive of an acute CVA. Patient was seen by neurology. Patient reports that she ran out of her clonidine. I had extensive discussion with her about this medication the safe use of this medication the rebound hypertension associated with this medication I did need to work with her primary care physician who she claims that she does have a primary care physician but nevertheless I would also still recommend refer her to the free clinic as she is uninsured. She will be started on aspirin and statin therapy. This is been prescribed prior to discharge. She is clinically stable. (2) T2DM (type 2 diabetes mellitus) Current Visit: Yes Status: Chronic Qualifiers: Diabetes mellitus intermediate designer insulin use: without intermediate designer use Plan to address problem: Coverage for now (3) HTN (hypertension) urgency Current Visit: Yes Status: Chronic Plan to address problem: Cont Amlodipine and Adjust medicines Patient reports that she was on clonidine and run out about a week ago. Also she is unsure of the date. Will resume clonidine have advised the need to follow-up with her primary care physician and keep blood pressure diary for better coordination. Blood pressure is better controlled this morning. (4) Depression/ Anxiety Patient with longstanding history of depression and anxiety very emotional tells me that if she stays in the hospital her blood pressure will not improve. We will add Xanax as needed. We do not have a list of her anxiety medication I will also put a consultation to mental health to assist. Extensive counseling given to her considering that she does not have any residual deficits from the CVA. Outpatient psych consult has also been recommended. Disposition: DC-01 TO HOME OR SELFCARE Time spent for discharge: 35 minutes Core Measure Documentation - Palliative Care Palliative Care/ Comfort Measures: Not Applicable - Core Measures Any of the following diagnoses?: stroke - Stroke Discharge Requirements Statin for LDL = or >70 mg/dl on DC: Yes Anticoag for atrial fib/atrial flutter: Not Applicable Antithrombotic for ischemic stroke: Yes Exam - Physical Exam Narrative exam: VITAL SIGNS: Reviewed. GENERAL: The patient appears normally developed, Vital signs as documented. HEAD: No signs of head trauma. EYES: Pupils are equal. Extraocular motions intact. EARS: Hearing grossly intact. MOUTH: Oropharynx is normal. NECK: No adenopathy, no JVD. CHEST: Chest with clear breath sounds bilaterally. No wheezes, rales, or rhonchi. CARDIAC: Regular rate and rhythm. S1 and S2, without murmurs, gallops, or rubs. VASCULAR: No Edema. Peripheral pulses normal and equal in all extremities. ABDOMEN: Soft, non tender and non distended. No rebound or guarding, and no masses palpated. Bowel Sounds normal. MUSCULOSKELETAL: Good range of motion of all major joints. Extremities without clubbing, cyanosis or edema. NEUROLOGIC EXAM: Alert and oriented x 3 No focal sensory or strength deficits. Speech normal. Follows commands. PSYCHIATRIC: Mood normal SKIN: detail exam as documented in skin assessment - Constitutional Vitals: Temp Pulse Resp BP Pulse Ox 97.9 F 76 17 139/74 94 07/22/19 03:51 07/22/19 03:51 07/22/19 04:00 07/22/19 03:51 07/22/19 03:51 Plan Activity: advance as tolerated, fall precautions Diet: low fat Special Instructions: record daily weights, record daily BP diary Follow up with: PRIMARY CAREMD [Primary Care Provider] - 7 Days JACKELIN PACHECO MD [Staff Physician] - 7 Days [facility] [Outside] - 7 Days [facility] [Provider Group] - 7 Days Prescriptions: AtorvaSTATin [Lipitor] 40 mg PO QHS #30 tablet amLODIPine 10 mg PO QDAY #30 tablet Aspirin 325 mg PO QDAY #30 tablet cloNIDine [Catapres] 0.1 mg PO DAILY #30 tablet hydroCHLOROthiazide [HCTZ] 25 mg PO QDAY #30 tablet clonazePAM [ Klonopin] 0.5 mg PO DAILY PRN #30 tab PRN Reason: Anxiety Famotidine [Pepcid] 20 mg PO BID #30 tablet
[2019-07-22] MEDS: metFORMIN 500 MG TAB PO SCH (09:07)
[2019-07-22] MEDS: FAMOTIDINE 20 MG TAB PO SCH (09:08)
[2019-07-22] MEDS: ASPIRIN 325 MG TAB PO SCH (09:08)
[2019-07-22] MEDS: hydroCHLOROthiazide 25 MG TAB PO SCH (09:08)
[2019-07-22] MEDS: DOCUSATE SODIUM 100 MG CAP PO SCH (09:08)
[2019-07-22] MEDS: cloNIDine 0.1 MG TAB PO SCH (09:08)
[2019-07-22] MEDS: amLODIPine 10 MG TAB PO SCH (09:09)
[2019-07-22] MEDS: SENNOSIDES 8.6 MG TAB PO SCH (09:19)
--- NOTE | 2019-07-22 11:53 | Consultation ---
History of Present Illness - Reason for Consult Consult date: 07/22/19 Reason for consult: anxiety/depression - History of Present Psychiatric Illness The patient's medical record was reviewed and the patient's progress discussed with the nursing staff. Debbie Marlow is a 48y/o female patient who states she was admitted for "a stroke." The patient is a/o x 3. She is pleasant and cooperative. She is polite. She makes good eye contact. She has difficulty verbally expressing herself. She states, "since the stroke it's hard to get my words out." The patient denies SI/HI. But states, "a long time ago, I did. More than 4 years ago." The patient says she "hasn't seen a psychiatrist in years." She says she was diagnosed with "depression, bipolar, and anxiety." She says "but I don't want medication I have to take everyday." She says she normally takes "Vistaril for anxiety." She says she "gets anxiety and frustrated sometimes trying to express herself." When asking the patient did she understand why psychiatry was consulted, the patient becomes tearful, she says, "no, but maybe because it's hard for me to express what I'm feeling sometimes." She then says "last night I told them I wanted to be alone. But it was only because it's hard to get my words out." She says, "I wasn't hallucinating or having thoughts to hurt myself." The patient denies any illicit drug use, alcohol use or nicotine. PAST PSYCHIATRIC HISTORY: Diagnoses: Anxiety, depression and bipolar Suicide attempts or Self-harm behavior: Once Prior psychiatric hospitalizations: Years ago Substance Abuse history: Denies Previous psychiatric medications tried: Vistaril Outpatient treatment: Denies PAST MEDICAL HISTORY: None reported Family Psychiatric History: None reported or documented SOCIAL HISTORY Current living status: Lives with boyfriend Highest level of education: 12th grade Employment status: Employed Marital status: Single Legal history: Denies History of abuse: Denies REVIEW OF SYSTEMS Constitutional: Negative for weight loss ENT: Negative for stridor Respiratory: Negative for cough or hemoptysis All other systems reviewed and are negative MENTAL STATUS EXAMINATION General Appearance: Dressed appropriately Behavior: Calm, cooperative. Polite Mood: "okay" Affect: Congruent with stated mood Speech: difficulty speaking Thought Process: Goal oriented Thought Content: Suicidal Ideation: Denies Homicidal Ideation: Denies Hallucinations: Denies Delusions: None elicited Insight and Judgment: Limited Memory/Cognition: Limited Assessment Generalized Anxiety Disorder Plan Script Clonazepam 0.5mg po daily prn anxiety Sitter: Refer to primary Medical: Per primary Disposition: The patient does not meet the requirement for acute inpatient hos pitalization. She may discharge home once medically clear. Her symptoms can be managed on an outpatient basis. The registered nurse ambulatory is to give the patient outpatient resources for outpatient psychiatry The patient is to follow up with outpatient psych or primary in 7 to 14 days upon discharge Will sign off. Thank you for this consult. Medications and Allergies Allergies Allergy/AdvReac Type Severity Reaction Status Date / Time No Known Allergies Allergy Unverified 02/23/18 13:48 Home Medications Medication Instructions Recorded Confirmed Last Taken Type Sennosides Tab [Senokot] 8.6 mg PO Q12H #30 tablet 02/25/18 07/22/19 07/19/19 08:00 Rx metFORMIN [Glucophage] 500 mg PO BID 30 Days #60 tablet 06/27/18 07/22/19 07/19/19 Rx Aspirin 325 mg PO QDAY #30 tablet 07/22/19 Unknown Rx AtorvaSTATin [Lipitor] 40 mg PO QHS #30 tablet 07/22/19 Unknown Rx Famotidine [Pepcid] 20 mg PO BID #30 tablet 07/22/19 Unknown Rx amLODIPine 10 mg PO QDAY #30 tablet 07/22/19 Unknown Rx cloNIDine [Catapres] 0.1 mg PO DAILY #30 tablet 07/22/19 Unknown Rx clonazePAM [ Klonopin] 0.5 mg PO DAILY PRN #30 tab 07/22/19 Unknown Rx hydroCHLOROthiazide [HCTZ] 25 mg PO QDAY #30 tablet 07/22/19 Unknown Rx Active Meds: Active Medications Acetaminophen (Tylenol) 650 mg PO Q4H PRN PRN Reason: Pain MILD(1-3)/Fever >100.5/PINEDA Alprazolam (Xanax) 0.5 mg PO Q8H PRN PRN Reason: Anxiety Amlodipine Besylate (Amlodipine) 10 mg PO QDAY FABIAN Last Admin: 07/22/19 09:09 Dose: 10 mg Documented by: Aspirin (Aspirin) 325 mg PO QDAY [facility] Last Admin: 07/22/19 09:08 Dose: 325 mg Documented by: Atorvastatin Calcium (Lipitor) 40 mg PO QHS [facility] Last Admin: 07/21/19 21:00 Dose: 40 mg Documented by: Bisacodyl (Dulcolax) 10 mg [place] QDAY PRN PRN Reason: Constipation Clonidine HCl (Catapres) 0.1 mg PO DAILY [facility] Last Admin: 07/22/19 09:08 Dose: 0.1 mg Documented by: Dicyclomine HCl (Bentyl) 10 mg PO DAILY PRN PRN Reason: Spasms Docusate Sodium (Colace) 100 mg PO BID [facility] Last Admin: 07/22/19 09:08 Dose: 100 mg Documented by: Famotidine (Pepcid) 20 mg PO BID [facility] Last Admin: 07/22/19 09:08 Dose: 20 mg Documented by: Hydralazine HCl (Apresoline) 5 mg IV Q6HR PRN PRN Reason: Hypertension Last Admin: 07/21/19 12:36 Dose: 5 mg Documented by: Hydrochlorothiazide (Hctz) 25 mg PO QDAY [facility] Last Admin: 07/22/19 09:08 Dose: 25 mg Documented by: Hydromorphone HCl (Dilaudid) 0.5 mg IV Q3H PRN PRN Reason: Pain , Severe (7-10) Ibuprofen (Ibuprofen) 600 mg PO Q6HR PRN PRN Reason: Pain, Moderate (4-6) Last Admin: 07/21/19 08:43 Dose: 600 mg Documented by: Magnesium Hydroxide (Milk Of Magnesia) 30 ml PO Q4H PRN PRN Reason: Constipation Metformin HCl (Glucophage) 500 mg PO BIDDIAB [facility] Last Admin: 07/22/19 09:07 Dose: 500 mg Documented by: Metoclopramide HCl (Reglan) 10 mg PO Q6H PRN PRN Reason: Nausea And Vomiting Ondansetron HCl (Zofran) 4 mg IV Q3H PRN PRN Reason: Nausea And Vomiting Oxycodone/Acetaminophen (Percocet 5/325) 1 tab PO Q6H PRN PRN Reason: Pain, Moderate (4-6) Promethazine HCl (Phenergan) 25 mg [place] Q6H PRN PRN Reason: Nausea And Vomiting Senna (Senokot) 8.6 mg PO Q12H [facility] Last Admin: 07/22/19 09:19 Dose: 8.6 mg Documented by: Sodium Chloride (Sodium Chloride Flush Syringe 10 Ml) 10 ml IV BID [facility] Last Admin: 07/22/19 09:09 Dose: 10 ml Documented by: Sodium Chloride (Sodium Chloride Flush Syringe 10 Ml) 10 ml IV PRN PRN PRN Reason: LINE FLUSH Mental Status Exam - Vital signs Last Vital Signs Temp 98.0 F 07/22/19 08:20 Pulse 96 H 07/22/19 09:09 Resp 18 07/22/19 08:20 BP 151/101 07/22/19 09:09 Pulse Ox 99 07/22/19 08:20 Results Result Diagrams: 07/21/19 04:00 07/21/19 04:00 Abnormal lab results 07/21/19 07/22/19 Range/Units 12:29 08:29 POC Glucose 183 H 112 H (70-105) All other labs normal.
--- NOTE | 2019-07-22 12:06 | Progress Note ---
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 Maynard's office this is typical small vessel HTN related stroke and actually showerd up in the same location as the CT of the Head I explaned dx to the patient she may be discharged Objective - Vital Sign Vital Signs - 12hr 07/22/19 07/22/19 07/22/19 03:45 03:51 04:00 Temperature 97.9 F Pulse Rate 82 76 Respiratory 16 17 Rate Respiratory 17 Rate [Lower Abdomen] Blood Pressure 139/74 O2 Sat by Pulse 94 Oximetry 07/22/19 07/22/19 07/22/19 08:20 09:08 09:09 Temperature 98.0 F Pulse Rate 96 H 96 H 96 H Respiratory 18 Rate Respiratory Rate [Lower Abdomen] Blood Pressure 151/101 151/101 151/101 O2 Sat by Pulse 99 Oximetry - Laboratory Findings CBC and BMP: 07/21/19 04:00 07/21/19 04:00 Abnormal Lab Findings: Abnormal Labs 07/20/19 07/20/19 07/20/19 13:43 13:43 13:43 MCH MCHC Seg Neutrophils % 74.7 H PT 12.0 L Thrombin Time Sodium 136 L Potassium Glucose 125 H POC Glucose Albumin 3.8 L Cholesterol HDL Cholesterol 07/20/19 07/20/19 07/21/19 13:43 13:49 04:00 MCH 33 H MCHC 36 H Seg Neutrophils % PT Thrombin Time 14.9 L Sodium Potassium Glucose POC Glucose 123 H Albumin Cholesterol HDL Cholesterol 07/21/19 07/21/19 07/22/19 04:00 12:29 08:29 MCH MCHC Seg Neutrophils % PT Thrombin Time Sodium Potassium 3.5 L Glucose POC Glucose 183 H 112 H Albumin 3.8 L Cholesterol 205 H HDL Cholesterol 82 H
[2019-07-22 12:40] VITALS: BP 151/101
== END 2019-07-22 12:13 | disposition home or self-care (01) | DRG 65 ==
LOC: ED 13:27 → 4A 15:22
PROVIDERS: ADMIT Internal Medicine; ATTEND Internal Medicine
DX: I63.89 Other cerebral infarction (principal); G81.91 Hemiplegia, unspecified affecting right dominant side; E11.9 Type 2 diabetes mellitus without complications; I16.0 Hypertensive urgency; F32.9 Major depressive disorder, single episode, unspecified; F17.210 Nicotine dependence, cigarettes, uncomplicated; R47.1 Dysarthria and anarthria; F41.1 Generalized anxiety disorder; I10 Essential (primary) hypertension; Z79.899 Other long term (current) drug therapy
CPT/HCPCS: 36415; 70450; 70496; 70498; 70551; 71045; 80048; 80053; 80061; 80076; 82962; 83036; 84484; 85025; 85610; 85670; 85730; 93005; 93306; 93880; 99406; G0378; A9270-GY; J0360; J7030; Q9967